=== PATIENT | female | born 1935 | race Caucasian/White ===

== ENCOUNTER 2018-02-07 12:49 | Observation (INO) | payer OTHER ==
[2018-02-07] MEDS ORDERED: DILTIAZEM 25 MG/5 ML VIAL IVP ONE (13:26)
[2018-02-07] MEDS ORDERED: DILTIAZEM 125 MG in D5W 125 ML IV ONE (13:26)
--- NOTE | 2018-02-07 13:30 | EDPHY ---
H & P Stated Complaint: afib from [facility]'s office Time Seen by Provider: 02/07/18 13:04 HPI/ROS: CHIEF COMPLAINT: Atrial fibrillation HISTORY OF PRESENT ILLNESS: 82-year-old female with paroxysmal atrial fibrillation presents with rapid heart rate. 8 week history of persistent atrial fibrillation, now on Eliquis and digoxin. Digoxin has not been controlling her heart rate and her heart rate has been persistently greater than 100. She feels fine at rest, but develops moderate shortness of breath and dizziness with standing and with any exertion. No chest pain or leg swelling. REVIEW OF SYSTEMS: complete 10 point ROS reviewed and is negative except for the noted elements in the HPI - Personal History Current Tetanus/Diphtheria Vaccine: Yes Current Tetanus Diphtheria and Acellular Pertussis (TDAP): Yes - Medical/Surgical History Hx Asthma: No Hx Chronic Respiratory Disease: No Hx Diabetes: No Hx Cardiac Disease: Yes Hx Renal Disease: Yes Hx Cirrhosis: No Hx Alcoholism: No Hx HIV/AIDS: No Hx Splenectomy or Spleen Trauma: No Other PMH: afib, CKD, hysterectomy, appy, - Social History Smoking Status: Never smoked Alcohol Use: Occasionally Drug Use: None - Physical Exam Exam: General Appearance: Alert, pleasant Eyes: Pupils equal and round, no conjunctival pallor ENT, Mouth: Mucous membranes moist Neck: Normal inspection Respiratory: Lungs are clear to auscultation Cardiovascular: Irregularly irregular tachycardia Gastrointestinal: Abdomen is soft and nontender Neurological: A&O, nonfocal, normal gait Skin: Warm and dry Extremities: Nontender, no pedal edema Psychiatric: Mood and affect normal Constitutional: Initial Vital Signs Temperature (C) 36.6 C 02/07/18 12:56 Heart Rate 114 H 02/07/18 12:56 Respiratory Rate 16 02/07/18 12:56 Blood Pressure 139/121 H 02/07/18 12:56 O2 Sat (%) 96 02/07/18 12:56 O2 Delivery Mode Room Air Allergies/Adverse Reactions: codeine Allergy (Verified 02/07/18 12:54) Home Medications: Medication Instructions Recorded Apixaban [Eliquis] 2.5 mg PO BID 02/07/18 C/E/Zn/Cu/OM3/DHA/EPA/LUT/ZEAX 1 each PO HS 02/07/18 [Preservision Areds 2 Softgel] Cholecalciferol Vit D3 [Vitamin D3 5,000 units PO DAILY 02/07/18 (*)] Cyanocobalamin [Vitamin B12 1,000 mcg IM Q30D 02/07/18 1000MCG/ML (*)] Digoxin [Lanoxin 0.125 mg] 125 mcg PO HS 02/07/18 Estradiol [Estrace] 1 mg PO HS 02/07/18 Irbesartan [Avapro 150 mg (*)] 300 mg PO DAILY 02/07/18 Zolpidem Tartrate [Ambien 5MG (*)] 5 mg PO HS PRN 02/07/18 Medical Decision Making - Diagnostics EKG Interpretation: EKG interpreted by me reveals atrial fibrillation, ventricular rate 112, low voltage, no ST or T segment changes. Interpretation: Abnormal EKG Imaging Results: Imaging Impressions Chest X-Ray 02/07/18 13:14 Impression: Chest negative for acute abnormality. Mild peribronchial thickening may reflect airways disease. Imaging: I viewed and interpreted images myself ED Course/Re-evaluation: This patient presents with atrial fibrillation with RVR. Stat EKG reveals no evidence of ischemia. Diltiazem 10 mg IV given followed by a diltiazem drip. Blood pressure remained stable throughout her emergency department stay. Heart rate gradually lowered to 100. Patient felt better after heart rate reduction. BNP elevated, c/w pulm edema secondary to Afib. Results d/w pt. Consulted Dr. Beach. Seen by Dr. Beach in the ED. Dr. Beach will admit the patient to the PCU. I spent a total of 35 minutes of critical care time in obtaining history, performing a physical exam, bedside monitoring of interventions, collecting and interpreting tests and discussion with consultants but not including time spent performing procedures. Organ at risk: Cardiac Differential Diagnosis: Includes though is not limited to pulmonary edema, pneumonia, acute coronary syndrome, hypotension, ventricular dysrhythmia. - Data Points Laboratory Results: Laboratory Results 02/07/18 13:10 02/07/18 13:10 02/07/18 02/07/18 02/07/18 13:13 13:10 13:10 WBC 8.69 10^3/uL 10^3/uL (3.80-9.50) RBC 4.64 10^6/uL 10^6/uL (4.18-5.33) Hgb 13.0 g/dL g/dL (12.6-16.3) Hct 41.0 % % (38.0-47.0) MCV 88.4 fL fL (81.5-99.8) MCH 28.0 pg pg (27.9-34.1) MCHC 31.7 g/dL L g/dL (32.4-36.7) RDW 13.8 % % (11.5-15.2) Plt Count 234 10^3/uL 10^3/uL (150-400) MPV 10.6 fL fL (8.7-11.7) Neut % (Auto) 68.1 % % (39.3-74.2) Lymph % (Auto) 19.1 % % (15.0-45.0) Eaton % (Auto) 9.0 % % (4.5-13.0) Eos % (Auto) 3.0 % % (0.6-7.6) Baso % (Auto) 0.6 % % (0.3-1.7) Nucleat RBC Rel Count 0.0 % % (0.0-0.2) Absolute Neuts (auto) 5.92 10^3/uL 10^3/uL (1.70-6.50) Absolute Lymphs (auto) 1.66 10^3/uL 10^3/uL (1.00-3.00) Absolute Monos (auto) 0.78 10^3/uL 10^3/uL (0.30-0.80) Absolute Eos (auto) 0.26 10^3/uL 10^3/uL (0.03-0.40) Absolute Basos (auto) 0.05 10^3/uL 10^3/uL (0.02-0.10) Absolute Nucleated RBC 0.00 10^3/uL 10^3/uL (0-0.01) Immature Gran % 0.2 % % (0.0-1.1) Immature Gran # 0.02 10^3/uL 10^3/uL (0.00-0.10) Sodium 141 mEq/L mEq/L (135-145) Potassium 4.2 mEq/L mEq/L (3.3-5.0) Chloride 104 mEq/L mEq/L (97-110) Carbon Dioxide 28 mEq/l mEq/l (22-31) Anion Gap 9 mEq/L mEq/L (6-14) BUN 22 mg/dL mg/dL (7-23) Creatinine 1.2 mg/dL H mg/dL (0.6-1.0) Estimated GFR 43 Glucose 84 mg/dL mg/dL (70-100) Calcium 9.2 mg/dL mg/dL (8.5-10.4) POC Troponin I 0.01 ng/mL ng/mL (0.00-0.08) NT-Pro-B Natriuret Pep 1450 pg/mL H pg/mL (0-450) Digoxin 0.4 ng/mL L ng/mL (0.8-2.0) Medications Given: Discontinued Medications Diltiazem HCl (Cardizem 25 Mg/5 Ml Vial) 10 mg IVP EDNOW ONE Stop: 02/07/18 13:27 Last Admin: 02/07/18 13:38 Dose: 10 mg Diltiazem HCl 125 mg/ Dextrose 125 mls @ 0 mls/hr IV EDNOW ONE; As Directed PRN Reason: Protocol Stop: 02/07/18 13:27 Last Admin: 02/07/18 14:04 Dose: 125 mls Point of Care Test Results: Chemistry 02/07/18 13:13 POC Troponin I 0.01 ng/mL ng/mL (0.00-0.08) Departure - Departure Disposition: [facility] Inpatient Acute Clinical Impression: Atrial fibrillation with rapid ventricular response Condition: Fair
[2018-02-07 13:52] LABS: PLATELET COUNT 234 10^3/uL (150-400)
[2018-02-07] MEDS ORDERED: ATROPINE SULFATE 1 MG/10 ML SYR IVP ONE (14:07)
[2018-02-07] MEDS ORDERED: ONDANSETRON 4 MG/2 ML VIAL IVP PRN (14:07)
[2018-02-07] MEDS ORDERED: NS 1,000 ML IV ONE (14:07)
[2018-02-07] MEDS ORDERED: ONDANSETRON DISINTEGRATING 4 MG TAB PO PRN (14:07)
--- NOTE | 2018-02-07 15:48 | ECHO ---
[email or web address] [address] [address] Main: [phone] Fax: Transthoracic Echocardiogram Name: HEAVENLY CLINE MR#: [id number] Study Date: 02/07/2018 Study Time: 02:06 PM Date of : 1935 Age: 82 year(s) Height: 157.5 cm (62 in.) Weight: 72.58 kg (160 lb.) BSA: 1.74 m2 Gender: Female Examination: Echo Indication: Atrial fibrillation with RVR Image Quality: Excellent Contrast: Requested by: Violeta Eubanks BP: 147 mmHg/99 mmHg Heart Rate: Rhythm: Indication: Atrial fibrillation with RVR Procedure Staff Student Activities Director: Sabine Shaver KIKO Reading Physician: Branden Beach MD Requesting Provider: Conclusions: Normal size left ventricle. No LV hypertrophy. Global hypercontractility of the left ventricle. EF is 59 %. No regional wall motion abnormality. Normal size right ventricle. The left atrium is mildly to moderately dilated. The right atrium is mildly dilated. Moderate mitral annular calcification. Moderate to severe mitral regurgitation. Mild aortic cusp calcification is noted. The aortic valve is tri-leaflet. There is no aortic valve regurgitation. The tricuspid valve is normal in appearance and function. Moderate tricuspid regurgitation is present. The pulmonary artery pressure is mildly increased. RVSP is 45-50mmHG.. The pulmonic valve is normal in appearance and function. Trivial pulmonic valve regurgitation. The aorta is normal. No pericardial effusion. Incidental finding - liver cyst measuring 13.4 cm x 11.5 cm.. The patient has atrial fibrillation with a rapid ventricular response. Moderately severe mitral regurgitation moderate MR with pulmonary hypertension. Measurements: Chambers Valvular Assessment AV/MV Valvular Assessment TV/PV Patient: HEAVENLY CLINE Study Date: 02/07/2018 Page 1 of 3 02:06 PM Normal Normal Normal Name Value Range Name Value Range Name Value Range Ao Frances (MM): 3.5 cm (2.2 cm-3.7 AV Vmax: 1.31 m/s (1 m/s-1.7 TR Vmax: 3.15 mm/s ( - ) cm) m/s) TR PGmax: 40 mmHg ( - ) IVSd (2D): 0.8 cm (0.6 cm-1.1 AV maxP mmHg ( - ) syst. PAP: 50 mmHg ( - ) cm) AV meanP mmHg ( - ) LVDd (2D): 4.1 cm (3.9 cm-5.3 LVOT Vmax: 0.65 m/s (0.7 m/s-1.1 cm) m/s) LVDs (2D): 2.3 cm (2.1 cm-4 ALINE (Vmax): 1.4 cm2 ( - ) cm) ALINE (VTI): 1.6 cm ( - ) LVPWd (2D): 0.7 cm ( - ) MV maxP mmHg ( - ) LVOTd 1.9 cm 1.9 cm mm MV meanP mmHg ( - ) LVEF (MOD4): 59 % (>=55 %) MVA (Vmax): 1.2 m/s ( - ) Continued Measurements: Chambers Valvular Assessment AV/MV Valvular Assessment TV/PV Name Value Name Value Name Value LADs: 4.0 cm MV Annulus: 3.0 cm CVP (est.): 10 mmHg LADs Lon.4 cm MV VTI: 29.80 cm LA Area: 21.8 cm2 MR Vena Contracta: 0.3 cm LA Volume: 62 ml MR ERO: 0.220 cm2 LA Volume Index: 35.6 ml/m2 MR PISA radius: 7 mm MR Reg. Volume: 36 ml MR Reg. Fraction: 17 % Additional Vessels Name Value Ao Ascendin.6 cm Findings: Left Ventricle: Normal size left ventricle. No LV hypertrophy. Global hypercontractility of the left ventricle. EF is 59 %. No regional wall motion abnormality. Right Ventricle: Normal size right ventricle. Left Atrium: The left atrium is mildly to moderately dilated. Right Atrium: The right atrium is mildly dilated. Mitral Valve: Moderate mitral annular calcification. Moderate to severe mitral regurgitation. Aortic Valve: Mild aortic cusp calcification is noted. The aortic valve is tri-leaflet. There is no aortic valve regurgitation. Tricuspid Valve: The tricuspid valve is normal in appearance and function. Moderate tricuspid regurgitation is present. The pulmonary artery pressure is mildly increased. RVSP is 45-50mmHG.. Pulmonic Valve: The pulmonic valve is normal in appearance and function. Trivial pulmonic valve regurgitation. Aorta: The aorta is normal. Pericardium: No pericardial effusion. Exam Comments: Incidental finding - liver cyst measuring 13.4 cm x 11.5 cm.. Patient: HEAVENLY CLINE Study Date: 02/07/2018 Page 2 of 3 02:06 PM (No Signature Object) Patient: HEAVENLY CLINE Study Date: 02/07/2018 Page 3 of 3 02:06 PM [id number]
--- NOTE | 2018-02-07 17:11 | GHP ---
DATE OF ADMISSION: 02/07/2018 HISTORY OF PRESENT ILLNESS: The patient is an 82-year-old patient with a history of coronary artery disease on the basis of a positive calcium score. She also has a history of renal insufficiency, and a remote history of atrial tachycardia as well as possible atrial flutter. Over the past 3 months h er cardiac situation has become more difficult to manage. She initially was treated in [place] for at rial flutter with the use of relatively high-dose flecainide which resulted in shortness of breath an d inability to continue the medication. Multaq was also unsuccessful in reducing her symptoms. The patient has subsequently developed persistent atrial fibrillation with rapid ventricular response wit h pulse rates between 115 and 150. She has felt wiped out, fatigued, and very tired. She is also br eathless with minimal activity. She has not had chest discomfort, pressure, tightness, or other clin ical symptoms of concern. CURRENT MEDICATIONS: Include digoxin 0.125 mg daily, Estrace 1 mg p.o. q.h.s., Eliquis 2.5 p.o. b.i. d. dose adjusted for her renal insufficiency, Avapro 300 mg p.o. daily, vitamin D3 5000 International Units daily, Ambien 5 mg as needed for sleep, and vitamin B12 1000 mcg intramuscularly q.30 days. ALLERGIES: Again, she is known to be allergic to codeine. PAST MEDICAL AND SURGICAL HISTORY: Otherwise notable for a large hepatic cyst which has been tracked by imaging for quite some time and noted to be stable. REVIEW OF SYSTEMS: Pertinent for an unintentional 15-pound weight loss over the past 3-4 months in s pite of her inability to perform significant exercise. She does not abuse alcohol or illicit drugs. PHYSICAL EXAMINATION: GENERAL: She appears somewhat anxious. VITAL SIGNS: Her blood pressure is 1 39/121, with a mean pressure of 127. Heart rate is between 110 and 120, respiratory rate 16, oxygen saturation 96% on room air, at a temperature of 36.5. NECK: Reveals no JVD or carotid bruit. HEART : Reveals normal S1 and S2 with irregularly irregular rhythm, as well as a murmur consistent with mi tral regurgitation. LUNGS: Clear to auscultation bilaterally without wheezes, rales, or rhonchi. A BDOMEN: Reveals positive bowel sounds. It is nondistended and nontender. I do not appreciate a mas s. EXTREMITIES: Warm, dry, and well perfused without significant peripheral edema. She has intact radial and dorsalis pedis pulses with a slight pulse deficit compared to her heart rhythm. DATA REVIEWED: Her laboratory studies reveal a white count of 8.69, H and H are 13.0 and 41.0, plate let count 234 with a normal differential. Sodium 141, potassium 4.2, BUN and creatinine are 22 and 1 .2, with an estimated GFR of 43, glucose 84, calcium 9.2. N-terminal proBNP of 1450. Dig level was measured at 0.4 ng/mL, which is below the therapeutic range. Her EKG reveals atrial fibrillation wit h rapid ventricular response and a low-voltage EKG throughout. Her echocardiogram reveals moderately severe mitral regurgitation with left atrial enlargement. She does not have left ventricular hypert rophy. She also has [id number] tricuspid regurgitation with an estimated pulmonary artery pr essure of 45-50 with preserved ejection fraction, and no segmental wall motion abnormalities. Chest x-ray reveals no acute cardiopulmonary process. IMPRESSION AND PLAN: The patient has atrial fibrillation with rapid ventricular response, has been t reated in the emergency department with a bolus of Cardizem followed by a drip. She has not had an a ttempt at cardioversion, and was in normal rhythm throughout much of the early summer. I do think it would be prudent to consider an attempt at TANGELA-guided cardioversion which we will plan for tomorrow morning. She may be a candidate for a different antiarrhythmic drug such as Tikosyn to try to mainta in sinus rhythm. I suspect some degree of her mitral regurgitation is related to her atrial fibrilla tion and rapid response. She does not appear to have true valvular pathology that would explain the severity of her mitral regurgitation such as prolapse or myxomatous leaflets. I have explained our p lesly and this course of action. The patient understands and is willing to proceed as we have planned. Copy requested to: Primary Care Physician Ky Gallagher /[id number]/MODL
[2018-02-07] MEDS: APIXABAN 2.5 MG TAB PO SCH (19:28)
[2018-02-07] MEDS: PRESERVISION AREDS2 FORMULA EYE VIT 1 EACH PO SCH (19:28)
[2018-02-07] MEDS: ESTRADIOL 1 MG TAB PO SCH (19:28)
[2018-02-07] MEDS ORDERED: DIGOXIN 125 MCG TAB PO SCH (21:00)
[2018-02-07] MEDS: ACETAMINOPHEN 325 MG TAB PO PRN (21:39)
[2018-02-07] MEDS: ZOLPIDEM TARTRATE 5 MG TAB PO PRN (21:40)
[2018-02-08] MEDS ORDERED: ETOMIDATE 40 MG/20 ML INJ IV ONE (07:45)
[2018-02-08] MEDS ORDERED: fentaNYL 100 MCG/2 ML INJ ONE (08:49)
[2018-02-08] MEDS ORDERED: MIDAZOLAM 2 MG/2 ML VIAL ONE (08:49)
[2018-02-08] MEDS ORDERED: ATROPINE SULFATE 1 MG/10 ML SYR ONE (09:02)
[2018-02-08] MEDS ORDERED: DILTIAZEM 125 MG in D5W 125 ML IV ONE (10:00)
--- NOTE | 2018-02-08 10:06 | PDANEPAE ---
ANE Past Medical History - Cardiovascular History Hx Hypertension: No Hx Arrhythmias: Yes - Pulmonary History Hx COPD: No Hx Oxygen in Use at Home: No Hx Sleep Apnea: No - Endocrine History Hx Diabetes: No - Renal History Hx Renal Disorders: Yes Renal History Comment: Chronic Renal insufficiency - Liver History Hx Hepatic Disorders: No - Neurological & Psychiatric Hx Hx Neurological and Psychiatric Disorders: No - GI History Hx Gastrointestinal Disorders: No - Chronic Pain History Chronic Pain: No ANE Review of Systems Review of Systems: - Exercise capacity Exercise capacity: <4 METS ANE Patient History - Allergies Allergies/Adverse Reactions: codeine Allergy (Verified 02/07/18 12:54) - Home Medications Home Medications: Apixaban [Eliquis] 2.5 mg PO BID 02/07/18 [Last Taken 02/07/18 08:00] C/E/Zn/Cu/OM3/DHA/EPA/LUT/ZEAX [Preservision Areds 2 Softgel] 1 each PO HS 02/07 [Last Taken 02/06/18] Cholecalciferol Vit D3 [Vitamin D3 (*)] 5,000 units PO DAILY 02/07/18 [Last Taken 02/07/18] Cyanocobalamin [Vitamin B12 1000MCG/ML (*)] 1,000 mcg IM Q30D 02/07/18 [Last Taken 01/17/18] Digoxin [Lanoxin 0.125 mg] 125 mcg PO HS 02/07/18 [Last Taken 02/06/18] Estradiol [Estrace] 1 mg PO HS 02/07/18 [Last Taken 02/06/18] Irbesartan [Avapro 150 mg (*)] 300 mg PO DAILY 02/07/18 [Last Taken 02/07/18] Zolpidem Tartrate [Ambien 5MG (*)] 5 mg PO HS PRN 02/07/18 [Last Taken 02/06/18] - Smoking Hx Smoking Status: Never smoked - Alcohol Use Alcohol Use: Occasionally ANE Labs/Vital Signs - Labs Result Diagrams: 02/07/18 13:10 02/07/18 13:10 - Vital Signs Blood Pressure: 114/69 Heart Rate: 77 Respiratory Rate: 20 O2 Sat (%): 94 Height: 157.48 cm Weight: 74.616 kg ANE Physical Exam - Airway Neck exam: FROM Mallampati Score: Class 2 Mouth exam: normal dental/mouth exam - Pulmonary Pulmonary: no respiratory distress, no rales or rhonchi, clear to auscultation - Cardiovascular Cardiovascular: irregularly irregular - ASA Status ASA Status: III
[2018-02-08] MEDS ORDERED: LIDOCAINE 1% 5 ML SDV ONE (10:09)
[2018-02-08] MEDS ORDERED: PROPOFOL/EMULSION 500 MG/50 ML BOTTLE IV ONE (10:09)
--- NOTE | 2018-02-08 13:23 | CPEKG ---
Test Reason : OPEN Blood Pressure : / mmHG Vent. Rate : 053 BPM Atrial Rate : 055 BPM P-R Int : 196 ms QRS Dur : 083 ms QT Int : 447 ms P-R-T Axes : 019 008 032 degrees QTc Int : 420 ms Sinus rhythm Atrial premature complex Low voltage, extremity leads Confirmed by Manoj Skinner ([id number]) on 02/08/2018 1:23:18 PM Referred By: Confirmed By:Manoj Skinner
[2018-02-08] MEDS: APIXABAN 2.5 MG TAB PO SCH ×2 (15:18→20:47)
--- NOTE | 2018-02-08 15:21 | ASMTCMCOM ---
CM Note CM Note Notes: Chart reviewed by ANDREA. Pt was admitted last night for Afib and RVR and was to have TANGELA cardioversion this am. Pt lives with and their address is listed in [place]. No therapies have been order. Pt will likely discharge independently. D/C Plan: TBD Date Signed: 02/08/2018 03:21 PM Electronically Signed By:Alissa Justice
--- NOTE | 2018-02-08 16:08 | POSTANESTH ---
Post Anesthetic Evaluation Cardiovascular Status: Normal, Stable Respiratory Status: Normal, Stable Level of Consciousness/Mental Status: Can Participate in Eval Pain Control: Adequate, Prn Tx Ordered Nausea/Vomiting Control: Adequate, Prn Tx Ordered Complications Possibly Related to Anesthesia: None Noted
[2018-02-08] MEDS: IRBESARTAN 150 MG TAB PO SCH (16:49)
[2018-02-08] MEDS: ACETAMINOPHEN 325 MG TAB PO PRN ×2 (16:50→20:50)
[2018-02-08] MEDS ORDERED: oxyCODONE IR 5 MG TAB PO PRN (17:21)
[2018-02-08] MEDS ORDERED: AMIODARONE HCL 100 ML IV ONE (17:22)
[2018-02-08] MEDS ORDERED: AMIODARONE HCL 200 ML IV ONE (17:31)
--- NOTE | 2018-02-08 17:48 | ECHO ---
[email or web address] [address] [address] Main: [phone] Fax: Transesophageal Echocardiography Name: HEAVENLY CLINE MR#: [id number] Study Date: 02/08/2018 Study Time: 11:50 AM Date of : 1935 Age: 82 year(s) Height: ( ) Weight: ( ) BSA: Gender: Female Examination: TANGELA Indication: Pre cardioversion Image Quality: Contrast: Requested by: Branden Beach Heart Rate: Rhythm: BP: / Procedure Staff Security Officer Supervisor: Juni Tony RDCS Reading Physician: Branden Beach MD Requesting Provider: TANGELA Exam Details Measurements: Chambers Valvular Assessment AV/MV Valvular Assessment TV/PV Normal Normal Normal Name Value Range Name Value Range Name Value Range TR Vmax: 2.68 mm/s ( - ) TR PGmax: 29 mmHg ( - ) syst. PAP: 34 mmHg ( - ) Additional Measurements: Valvular Assessment TV/PV Name Value CVP (est.): 5 mmHg Findings: Left Ventricle: Normal size left ventricle. Normal global systolic LV function. Left Atrial Appendage: Good color flow doppler in the left atrial appendage. No thrombus in left appendage. Right Atrium: The right atrium is normal in size. Mitral Valve: Patient: HEAVENLY CLINE Study Date: 02/08/2018 Page 1 of 2 11:50 AM Moderate to severe mitral regurgitation. Aortic Valve: The aortic valve is tri-leaflet. Trivial aortic valve regurgitation. Tricuspid Valve: The tricuspid valve is normal in appearance and function. Moderate tricuspid regurgitation is present. Pulmonic Valve: The pulmonic valve is normal in appearance. Trivial pulmonic valve regurgitation. Aorta: The aorta is normal. Pericardium: No pericardial effusion. Exam Comments: Proceeded with successful elective DC cardioversion.. l1n (No Signature Object) Patient: HEAVENLY CLINE Study Date: 02/08/2018 Page 2 of 2 11:50 AM [id number]
[2018-02-08] MEDS: PRESERVISION AREDS2 FORMULA EYE VIT 1 EACH PO SCH (20:47)
[2018-02-08] MEDS: ZOLPIDEM TARTRATE 5 MG TAB PO PRN (20:47)
[2018-02-08] MEDS: ESTRADIOL 1 MG TAB PO SCH (20:47)
[2018-02-09] MEDS ORDERED: AMIODARONE HCL 540 MG in D5W 300 ML IV ONE
[2018-02-09] MEDS: IRBESARTAN 150 MG TAB PO SCH (08:55)
[2018-02-09] MEDS: APIXABAN 2.5 MG TAB PO SCH ×2 (08:55→21:23)
--- NOTE | 2018-02-09 11:00 | CPEKG ---
Test Reason : OPEN Blood Pressure : / mmHG Vent. Rate : 070 BPM Atrial Rate : 070 BPM P-R Int : 193 ms QRS Dur : 086 ms QT Int : 416 ms P-R-T Axes : 014 -02 023 degrees QTc Int : 449 ms Sinus rhythm Low voltage, extremity and precordial leads Confirmed by Manoj Skinner ([id number]) on 02/09/2018 10:59:38 AM Referred By: Confirmed By:Manoj Skinner
[2018-02-09] MEDS: ACETAMINOPHEN 325 MG TAB PO PRN ×2 (12:58→21:23)
--- NOTE | 2018-02-09 18:50 | PDCARPN ---
Cardiology Progress Note Assessment/Plan: Assessment: Persistent paroxysmal atrial fibrillation s/p amiodarone. The patient had a TANGELA/DCCV yesterday morning, which was successful. The patient is currently in normal sinus rhythm and is asymptomatic. Plan: amiodarone 400mg p.o BID 02/09/18 17:50 Reviewed/Discussed With: family, multidisciplinary team Time Spent with Patient: greater than 35 minutes Time Spent with Patient: Greater than 35 minutes spent on this patients care, greater than 50% of time spent counseling, educating, and coordinating care regarding the above mentioned plan. Objective: Vital Signs (8 Hrs) Temp Pulse Resp BP Pulse Ox 02/09/18 16:18 36.6 C 74 14 143/84 H 91 L 02/09/18 14:59 36.6 C 77 20 136/67 H 91 L 02/09/18 12:00 36.6 C 70 22 H 144/82 H 93 Intake/Output (24 Hrs) 02/08/18 02/09/18 02/10/18 05:59 05:59 05:59 Intake Total 520 939 Output Total 1400 1000 450 Balance -880 -61 -450 Intake: Oral (ml) 520 840 IV Infused (ml) 99 Amiodarone HCl 540 mg In 99 D5w 300 ml @ 16.667 mls/ hr IV ONCE ONE Rx#: [id number] Output: Urine (ml) 1400 1000 450 Toilet 1400 1000 450 Other: Weight 74.616 kg 74.616 kg Number of Voids Toilet 1 1 Number of Stools Toilet 1 Result Diagrams: 02/07/18 13:10 02/07/18 13:10 EKG: sinus rhythm Telemetry: sinus occasional PVC's - Physical Exam Constitutional: WDWN, no apparent distress Eyes: PERRL, EOMI, anicteric sclera Ears, Nose, Mouth, Throat: moist mucous membranes Cardiovascular: regular rate and rhythm, systolic murmur Respiratory: clear to auscultate bilat Gastrointestinal: normoactive bowel sounds Psychiatric: cooperative, interactive - . Pending Discharge Within 24 Hours: Yes ICD10 Worksheet Patient Problems: Problems Problem Status Onset Atrial fibrillation with rapid ventricular response Acute
[2018-02-09] MEDS: ZOLPIDEM TARTRATE 5 MG TAB PO PRN (21:23)
[2018-02-09] MEDS: AMIODARONE HCL 200 MG TAB PO SCH (21:23)
[2018-02-09] MEDS: ESTRADIOL 1 MG TAB PO SCH (21:24)
[2018-02-09] MEDS: PRESERVISION AREDS2 FORMULA EYE VIT 1 EACH PO SCH (21:24)
[2018-02-10 09:00] VITALS: BP 128/74
[2018-02-10] MEDS: IRBESARTAN 150 MG TAB PO SCH (09:00)
[2018-02-10] MEDS: APIXABAN 2.5 MG TAB PO SCH (09:00)
[2018-02-10] MEDS: AMIODARONE HCL 200 MG TAB PO SCH (09:00)
--- NOTE | 2018-02-10 10:29 | ASDISCHSUM ---
Discharge Information Plan Status:Home with No Needs Medically Cleared to Leave:02/09/2018 Discharge Date:02/09/2018 CM D/C Disposition:Home, Routine, Self-Care ADT D/C Disposition:Home, Routine, Self-Care Projected Discharge Date:02/09/2018 Transportation at D/C: Discharge Delay Reason: Follow-Up Date:02/09/2018 Discharge Slot: Final Diagnosis: Placement Information Patient Contact Information Contact Name:SHAY Relationship: Address:[address] City:[place] Phone: [facility]/Zip Code:[place] [address] Email: Financial Information Financial Class:Medicare Advantage Plans Primary Plan Desc:CHERYL CAM MEDICARE Primary Plan Number:[id number] Secondary Plan Desc: Secondary Plan Number: Assessment Information LACE LACE Length of stay for Answers: 2 days current admission Acuity / Level of Answers: No Care: Did the patient have an inpatient admission? Comorbidities - select Answers: Congestive heart failure all that apply Mild liver or renal disease Other Notes: AFib # of Emergency department Answers: 1-2 visits in the last 6 months Score: 8 Date Signed: 02/10/2018 10:27 AM Electronically Signed By:Annabelle Marina RN [facility] ANDREA Progress Note CM Note ANDREA Note Notes: Chart reviewed by ANDREA. Pt was admitted last night for Afib and RVR and was to have TANGELA cardioversion this am. Pt lives with and their address is listed in [place]. No therapies have been order. Pt will likely discharge independently. D/C Plan: TBD Date Signed: 02/08/2018 03:21 PM Electronically Signed By:Alissa Justice Case Management Discharge Plan Note Case Management Discharge Discharge Order Complete? Answers: Yes Patient to Obtain Answers: via Family Medications Discharge Comments Notes: 02/10/2018 Case Management Note Pt d/c independently with no identified needs from case management. Date Signed: 02/10/2018 10:29 AM Electronically Signed By:Annabelle Marina RN Intervention Information
--- NOTE | 2018-02-10 10:37 | GDS ---
ADMISSION DIAGNOSES: 1. Paroxysmal and now persistent atrial fibrillation. 2. Hypertension. 3. Dyslipidemia. DISCHARGE DIAGNOSES: 1. Atrial fibrillation, status post cardioversion, now in sinus rhythm. 2. Hypertension, well controlled. 3. Dyslipidemia. HISTORY OF PRESENT ILLNESS/HOSPITAL COURSE: For detailed history and physical, please see the recent ly dictated H and P. briefly, the patient is an 82-year-old patient with a prior history of atrial t achycardia and atrial flutter who presented to the emergency department with complaints of shortness of breath. She drove in to visit friends and experienced shortness of breath, as well as palpitation s. She has been having problems with persistent atrial fibrillation for several weeks before driving down from [place], [place]. The patient was noted to be in atrial fibrillation with rapid ventricular response. She was kept n.p .o. overnight, and on the following morning, underwent successful TANGELA guided cardioversion. She has remained in sinus rhythm since that time with occasional PVCs. On the morning of her discharge from the hospital, the patient is medically stable and ready for discharge to home. Her blood pressure is well controlled at 128/74. Her EKG is unchanged without a prolonged QT interval. DISCHARGE MEDICATIONS: To include amiodarone 400 mg p.o. b.i.d. to complete 5 days, which will end o n Wednesday, after that she is to take only 1 tablet 200 mg daily of amiodarone. Her medications also i nclude Ambien 5 mg as needed for insomnia, vitamin D3 5000 international units daily, irbesartan 300 mg p.o. daily, estradiol 1 mg p.o. q.h.s., apixaban (Eliquis) 2.5 mg p.o. b.i.d., and vitamin B12 int ramuscularly every 30 days. Her digoxin has been discontinued. The patient understands the long-term risks of amiodarone, include damage to her eyesight, liver, thy roid, and the potential for pulmonary fibrosis, which are usually dose related. Certainly, it is imp ortant for us to maintain sinus rhythm as she has clinical symptoms of heart failure when she is in a trial fibrillation with rapid ventricular response. She should have a followup echo in 6 months to e nsure that her mitral regurgitation is not getting worse. DISCHARGE INSTRUCTIONS/FOLLOWUP: Her activities will be restricted by post-cardioversion precautions . She is to avoid strenuous activity, excess caffeine, or alcohol for the next 3 weeks. She is to f peterlow up with an EKG in 1 to 2 weeks once she has return to [place] with it. She knows to return prom ptly to the emergency department for sensation of palpitations, skipped heart beats, or other clinica l symptoms of concern. The patient will require a screening ophthalmology visit in the next few week s. LABORATORY DATA: Her discharge chemistries reveal a creatinine of 1.3, estimated GFR of 39. N-termi nal proBNP is improved from 1450 to 1210. TSH was 1.65 and the thyroxine T4 level was 11.2, which is high, slightly above the upper limits of normal at 11. Her bilirubin is 0.3, AST is 14, ALT is 22, with alkaline phosphatase is 75, which are her pre-amiodarone liver enzymes and thyroid function test s. /[id number]/MODL
--- NOTE | 2018-02-10 16:33 | CPEKG ---
Test Reason : OPEN Blood Pressure : / mmHG Vent. Rate : 080 BPM Atrial Rate : 080 BPM P-R Int : 193 ms QRS Dur : 080 ms QT Int : 404 ms P-R-T Axes : 044 014 039 degrees QTc Int : 466 ms Sinus rhythm Low voltage, extremity and precordial leads Confirmed by Manoj Skinner ([id number]) on 02/10/2018 4:32:58 PM Referred By: Confirmed By:Manoj Skinner
--- NOTE | 2018-02-11 17:37 | CPEKG ---
Test Reason : OPEN Blood Pressure : / mmHG Vent. Rate : 112 BPM Atrial Rate : 162 BPM P-R Int : 149 ms QRS Dur : 080 ms QT Int : 343 ms P-R-T Axes : 000 008 159 degrees QTc Int : 469 ms Atrial fibrillation Low voltage, extremity leads Nonspecific T abnormalities, lateral leads Confirmed by Eligio Nunez ([id number]) on 02/11/2018 5:36:27 PM Referred By: Confirmed By:Eligio Nunez
== END 2018-02-10 11:50 | disposition home or self-care (01) ==
LOC: F2W 14:45
PROVIDERS: ADMIT Internal Medicine; ATTEND Internal Medicine Cardiovascular Disease
DX: I48.0 Paroxysmal atrial fibrillation (principal); I48.2 Chronic atrial fibrillation; I12.9 Hypertensive chronic kidney disease with stage 1 through stage 4 chronic kidney disease, or unspecified chronic kidney disease; E78.5 Hyperlipidemia, unspecified; N18.9 Chronic kidney disease, unspecified; I25.10 Atherosclerotic heart disease of native coronary artery without angina pectoris
CPT/HCPCS: 71046; 92960; 93005; 93306; 93312; 96365; 96366; 96367; 96375; 99291; G0378; J0282; J2704; 84484-PO; J0461; J2250; J3010

== ENCOUNTER → 2018-04-11 | Day surgery (SDC) | payer OTHER ==
--- NOTE | 2018-04-11 17:21 | ECHO ---
[email or web address] [address] [address] Main: [phone] Fax: Transthoracic Echocardiogram Name: HEAVENLY CLINE MR#: [id number] Study Date: 04/11/2018 Study Time: 01:09 PM Date of : 1935 Age: 82 year(s) Height: 157.5 cm (62 in.) Weight: 72.58 kg (160 lb.) BSA: 1.74 m2 Gender: Female Examination: Echo Indication: Re-evaluate the mitral regurgitation, now in NSR Image Quality: Adequate Contrast: Requested by: Branden Beach BP: / Heart Rate: Rhythm: Indication: Re-evaluate the mitral regurgitation, now in NSR Procedure 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 Mild concentric LV hypertrophy. Normal global systolic LV function. EF is 69 %. No regional wall motion abnormality. Grade III diastolic dysfunction. Normal size right ventricle. Normal RV function. Left atrium measures mildly dilated; visually appears mild to moderately dilated. The right atrium is mildly to moderately dilated. The mitral leaflets are thickened. The posterior leaflet domes in systole (hockey stick appearance). There is significant mitral annular calcification. There is severe mitral regurgitation. Pulmonary vein reversal noted. Mitral inflow E wave over 1.2 m/s. The mean gradient across the MV is 3mmHg. No significant mitral stenosis. Papillary muscle dysfunction should be considered. The aortic valve is tri-leaflet. Mild aortic cusp calcification is noted. There is no significant aortic valve regurgitation. No aortic valve stenosis is present. The tricuspid valve appears normal. Severe tricuspid regurgitation is present. Pulmonary valve not well visualized. Mild pulmonic valve regurgitation is noted. Normal size aortic root measuring 2.8 cm. Normal size ascending aorta measuring 3.4 cm. The IVC is dilated. No pericardial effusion. The patient has severe mitral valve and tricuspid valve regurgitation in spite of normal sinus rhythm and needs heart cath to check trans pulmonic gradient as well as to rule out coronary artery disease. Patient: HEAVENLY CLINE Study Date: 04/11/2018 Page 1 of 3 01:09 PM Measurements: Chambers Valvular Assessment AV/MV Valvular Assessment TV/PV Normal Normal Normal Name Value Range Name Value Range Name Value Range Ao Frances (MM): 2.8 cm (2.2 cm-3.7 AV Vmax: 1.19 m/s (1 m/s-1.7 TR Vmax: 3.95 mm/s ( - ) cm) m/s) TR PGmax: 62 mmHg ( - ) IVSd (2D): 1.0 cm (0.6 cm-1.1 AV maxP mmHg ( - ) syst. PAP: 72 mmHg ( - ) cm) MV E Vmax: 1.66 m/s ( - ) PV Vmax: 0.62 m/s (0.6 m/s-0.9 LVDd (2D): 4.3 cm (3.9 cm-5.3 MV A Vmax: 0.59 m/s ( - ) m/s) cm) MV E/A: 2.81 ( - ) PV PGmax: 2 mmHg ( - ) LVDs (2D): 2.8 cm (2.1 cm-4 MV meanP mmHg ( - ) cm) MV PHT: 0.072 s ( - ) LVPWd (2D): 1.0 cm ( - ) MVA (Vmax): 2.8 m/s ( - ) LVOTd 2.0 cm 2.0 cm mm MVA (PHT): 3.1 s ( - ) LVEF (BP): 69 % (>=55 %) RVDd(2D): 3.2 cm (1.9 cm-3.8 cmmm) Continued Measurements: Chambers Valvular Assessment AV/MV Valvular Assessment TV/PV Name Value Name Value Name Value LADs: 3.7 cm MV Annulus: 3.3 cm CVP (est.): 10 mmHg LADs Lon.2 cm MV DecTime: 144 m/s LA Area: 23.0 cm2 MV E' Septal: 0.04 m/s LA Volume: 69 ml MV E/E' Septal: 37.00 LA Volume Index: 39.7 ml/m2 MV E/E' Lateral: 28.70 TAPSE: 2.3 cm MV VTI: 18.80 cm RA Area: 17.7 cm2 MR Vena Contracta: 0.6 cm MR ERO: 0.220 cm2 MR PISA radius: 8 mm MR Reg. Volume: 48 ml MR Reg. Fraction: 30 % Additional Vessels Name Value Ao Ascendin.4 cm Findings: Left Ventricle: Normal size left ventricle. Mild concentric LV hypertrophy. Normal global systolic LV function. EF is 69 %. No regional wall motion abnormality. Grade III diastolic dysfunction. Right Ventricle: Normal size right ventricle. Normal RV function. Left Atrium: Left atrium measures mildly dilated; visually appears mild to moderately dilated. Right Atrium: The right atrium is mildly to moderately dilated. Mitral Valve: The mitral leaflets are thickened. The posterior leaflet domes in systole (hockey stick appearance). There is significant mitral annular calcification. There is severe mitral regurgitation. Pulmonary vein reversal noted. Mitral inflow E wave over 1.2 m/s. The mean gradient across the MV is 3mmHg. No significant mitral stenosis. Papillary muscle dysfunction should be considered. Aortic Valve: The aortic valve is tri-leaflet. Mild aortic cusp calcification is noted. There is no significant aortic valve regurgitation. No aortic valve stenosis is present. Tricuspid Valve: The tricuspid valve appears normal. Severe tricuspid regurgitation is present. Moderate to severe tricuspid valve regurgitation. Right ventricular systolic pressure measures 72mmHg. The pulmonary Patient: HEAVENLY CLINE Study Date: 04/11/2018 Page 2 of 3 01:09 PM artery pressure is severely increased. Pulmonic Valve: Pulmonary valve not well visualized. Mild pulmonic valve regurgitation is noted. Aorta: Normal size aortic root measuring 2.8 cm. Normal size ascending aorta measuring 3.4 cm. IVC: The IVC is dilated. Pericardium: No pericardial effusion. (No Signature Object) Patient: HEAVENLY CLINE Study Date: 04/11/2018 Page 3 of 3 01:09 PM [id number]
== END | disposition home or self-care (01) ==
LOC: FCATH 12:59
PROVIDERS: ATTEND Internal Medicine Cardiovascular Disease
PROC: B246ZZ4 Ultrasonography of Right and Left Heart, Transesophageal (ICD-10-PCS; principal; 2018-04-11)
DX: I34.0 Nonrheumatic mitral (valve) insufficiency (principal); I48.91 Unspecified atrial fibrillation

== ENCOUNTER 2018-04-14 09:17 | Day surgery (SDC) | payer OTHER ==
[2018-04-14] MEDS ORDERED: ASPIRIN EC 325 MG TAB PO ONE ×2 (09:21→09:34)
[2018-04-14] MEDS ORDERED: DIAZEPAM 5 MG TAB PO ONE (09:21)
[2018-04-14] MEDS ORDERED: diphenhydrAMINE 25 MG CAP PO ONE ×2 (09:21→09:34)
[2018-04-14] MEDS ORDERED: FAMOTIDINE 20 MG TAB PO ONE (09:21)
[2018-04-14] MEDS ORDERED: NS 1,000 ML IV ONE (09:21)
[2018-04-14] MEDS ORDERED: FAMOTIDINE 20 MG TAB ONE (09:34)
[2018-04-14] MEDS ORDERED: DIAZEPAM 5 MG TAB ONE (09:35)
[2018-04-14 09:51] LABS: PLATELET COUNT 236 10^3/uL (150-400)
[2018-04-14 09:59] LABS: INR 1.18 (0.83-1.16); PROTIME(PATIENT) 15.2 SEC (12.0-15.0)
[2018-04-14] MEDS ORDERED: VERAPAMIL 5 MG/2 ML VIAL ONE (10:20)
[2018-04-14] MEDS ORDERED: LIDOCAINE 1% 300 MG/30 ML SDV ONE (10:20)
[2018-04-14] MEDS ORDERED: MIDAZOLAM 2 MG/2 ML VIAL ONE (10:20)
[2018-04-14] MEDS ORDERED: fentaNYL 100 MCG/2 ML INJ ONE (10:20)
[2018-04-14] MEDS ORDERED: HEPARIN 10,000 UNIT/10 ML MDV (1,000 UNIT/ML) ONE (10:21)
[2018-04-14] MEDS ORDERED: IOPAMIDOL (ISOVUE-370) 150 ML BTL IV ONE (10:21)
--- NOTE | 2018-04-14 10:22 | PDPROPOC ---
Sedation Plan of Care Sedation Plan of Care: vital signs stable, mental status noted, patient educated of risks, benefits, alternatives, patient can tolerate sedation ASA Classification: ASA 3 Planned drugs: fentanyl, midazolam Mallampati Score: Class 2 Mallampati Reference Image: Patient passed 3-3-2 rule?: Yes
--- NOTE | 2018-04-14 10:28 | PDGENHP ---
History and Physical - Chief Complaint here for pre operative heart cath - History of Present Illness Janina Degroot is an 82 year old lady with paroxysmal atrial fibrillaiton, severe mitral regurgitation and severe tricuspid regurgitation that has persisted in spite of normal rhythm. She feels miserable when in atrial fibrillation and hates the way that beta blockers make her feel. She is slated for open heart surgery early next week with Dr. Kolb. The surgery will be a mitral tanvir replacement(likely) with triuspid valve repair and Lizama Maze IV as well as left atrial appendage ligation. She has a calcified and tortuous aorta so caution will need to be used if the aorta is to be cross clamped. Today we will be checking to see if she has underlying coronary disease and measuring her right heart pressures as well. History Information - Allergies/Home Medication List Allergies/Adverse Reactions: codeine Allergy (Verified 04/13/18 10:10) Vomiting Home Medications: C/E/Zn/Cu/OM3/DHA/EPA/LUT/ZEAX [Preservision Areds 2 Softgel] 1 each PO HS 02/07 [Last Taken 04/13/18 21:00] Cholecalciferol Vit D3 [Vitamin D3 (*)] 5,000 units PO DAILY 02/07/18 [Last Taken 04/13/18 21:00] Irbesartan [Avapro 150 mg (*)] 75 mg PO DAILY 02/07/18 [Last Taken 04/13/18 09: 00] Zolpidem Tartrate [Ambien 5MG (*)] 5 mg PO HS PRN 02/07/18 [Last Taken 04/13/18 21:00] Acetaminophen [Tylenol 325mg (*)] 325 mg PO Q6HRS PRN 04/13/18 [Last Taken Unknown] Apixaban [Eliquis] 5 mg PO BID 04/13/18 [Last Taken 04/13/18 21:00] Estradiol [Estradiol 1 MG (*)] 1 mg PO HS 04/13/18 [Last Taken 04/13/18 21:00] Metoprolol Succinate Xr [Toprol Xl 25 mg (*)] 25 mg PO DAILY 04/13/18 [Last Taken 04/13/18 09:00] I have personally reviewed and updated: family history, medical history, social history, surgical history Past Medical History: In addition to hypertension, large hepatic cyst 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 Also calcific and tortuous aorta. 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 Review of Systems Review of Systems: Constitutional: Reports: weakness, other (fatigue) EENMT: Reports: no symptoms Cardiac: Reports: chest pain, irregular heart rate, lightheadedness, palpitations Respiratory: Reports: orthopnea, shortness of breath Gastrointestinal: Reports: no symptoms Genitourinary: Reports: no symptoms Muscolosketal: Reports: muscle stiffness Skin: Reports: no symptoms Neurological: Reports: no symptoms Hematologic/Lymphatic: Reports: no symptoms Immunologic/Allergy: Reports: no symptoms Physical Exam Physical Exam: Constitutional: no apparent distress Eyes: PERRL, anicteric sclera, EOMI Ears, Nose, Mouth, Throat: moist mucous membranes, hearing normal Cardiovascular: regular rate and rhythym, systolic murmur Respiratory: no respiratory distress, no rales or rhonchi Gastrointestinal: normoactive bowel sounds Skin: warm, normal color Neurologic: AAOx3 Psychiatric: interacting appropriately, not anxious Lab Data & Imaging Review 04/14/18 09:30 04/14/18 09:30 WBC 7.39 10^3/uL (3.80-9.50) 04/14/18 09:30 RBC 4.40 10^6/uL (4.18-5.33) 04/14/18 09:30 Hgb 12.6 g/dL (12.6-16.3) 04/14/18 09:30 Hct 38.7 % (38.0-47.0) 04/14/18 09:30 MCV 88.0 fL (81.5-99.8) 04/14/18 09:30 MCH 28.6 pg (27.9-34.1) 04/14/18 09:30 MCHC 32.6 g/dL (32.4-36.7) 04/14/18 09:30 RDW 14.7 % (11.5-15.2) 04/14/18 09:30 Plt Count 236 10^3/uL (150-400) 04/14/18 09:30 MPV 10.3 fL (8.7-11.7) 04/14/18 09:30 Neut % (Auto) 74.0 % (39.3-74.2) 04/14/18 09:30 Lymph % (Auto) 13.8 % (15.0-45.0) L 04/14/18 09:30 Coffey % (Auto) 9.2 % (4.5-13.0) 04/14/18 09:30 Eos % (Auto) 2.2 % (0.6-7.6) 04/14/18 09:30 Baso % (Auto) 0.5 % (0.3-1.7) 04/14/18 09:30 Nucleat RBC Rel Count 0.0 % (0.0-0.2) 04/14/18 09:30 Absolute Neuts (auto) 5.47 10^3/uL (1.70-6.50) 04/14/18 09:30 Absolute Lymphs (auto) 1.02 10^3/uL (1.00-3.00) 04/14/18 09:30 Absolute Monos (auto) 0.68 10^3/uL (0.30-0.80) 04/14/18 09:30 Absolute Eos (auto) 0.16 10^3/uL (0.03-0.40) 04/14/18 09:30 Absolute Basos (auto) 0.04 10^3/uL (0.02-0.10) 04/14/18 09:30 Absolute Nucleated RBC 0.00 10^3/uL (0-0.01) 04/14/18 09:30 Immature Gran % 0.3 % (0.0-1.1) 04/14/18 09:30 Immature Gran # 0.02 10^3/uL (0.00-0.10) 04/14/18 09:30 PT 15.2 SEC (12.0-15.0) H 04/14/18 09:30 INR 1.18 (0.83-1.16) H 04/14/18 09:30 Sodium 138 mEq/L (135-145) 04/14/18 09:30 Potassium 4.3 mEq/L (3.5-5.2) 04/14/18 09:30 Chloride 108 mEq/L (97-110) 04/14/18 09:30 Carbon Dioxide 25 mEq/l (22-31) 04/14/18 09:30 Anion Gap 5 mEq/L (6-14) L 04/14/18 09:30 BUN 20 mg/dL (7-23) 04/14/18 09:30 Creatinine 1.3 mg/dL (0.6-1.0) H 04/14/18 09:30 Estimated GFR 39 04/14/18 09:30 Glucose 93 mg/dL (70-100) 04/14/18 09:30 Calcium 9.0 mg/dL (8.5-10.4) 04/14/18 09:30 Magnesium 1.8 mg/dL (1.6-2.3) 04/14/18 09:30 Triglycerides 137 mg/dL (35-135) H 04/14/18 09:30 Cholesterol 190 mg/dL (140-220) 04/14/18 09:30 Cholesterol Risk Factr 0.5 (0.2-1.0) 04/14/18 09:30 LDL Cholesterol, Calc 105 mg/dL (80-100) H 04/14/18 09:30 LDL Risk Factor 0.6 (0.2-1.0) 04/14/18 09:30 VLDL Cholesterol 27 mg/dL (8-25) H 04/14/18 09:30 Non-HDL Cholesterol 132 mg/dL (90-129) H 04/14/18 09:30 HDL Cholesterol 58 mg/dL (40-85) 04/14/18 09:30 LDL/HDL Ratio 1.80 RATIO (1.00-3.22) 04/14/18 09:30 Cholesterol/HDL Ratio 3.28 RATIO (1.00-4.44) 04/14/18 09:30 Visualized and Interpreted EKG results: Yes EKG Interpretation: Positive for: normal sinsus rhythm, other (low voltage) Assessment & Plan Assessment: Severe mitral and tricuspid regurgitation with paroxysmal atrial fibrillation as well as hypertension Needs heart cath prior to planned valve surgery, Lizama Maze IV and planned left atrial appendage ligation Plan: As above.
--- NOTE | 2018-04-14 10:41 | PDDXCAT ---
Diagnostic Cath Note - . Date: 04/14/18 Senior Vice President And Chief Information Officer: Yong Indication: other (severe mitral regurgitation and class III CHF symptoms) - Procedure Access: left wrist Procedure: left heart catheterization, coronary angiography, left ventriculogram , right heart catheterization - Materials Left Heart Cath size: 5F Left Heart Cath materials: JL4.0, JR4.0 Right Heart Cath size: 5F Right Heart Cath materials: PWP catheter - Findings-Left Heart Catheterization LM: The left main is 5mm in size and short. The vessel bifurcates into a circumflex and left anterior descending artery. There is CALVIN III flow throughout. LAD: The left anterior descending artery is 3mm in size. There is no evidence of flow-limiting obstruction with CALVIN III flow. LCX: The left circumflex is 3mm in size. There is no evidence of flow-limiting obstruction with CALVIN III flow. RCA: The right coronary artery is 3mm in size and dominant. There is no evidence of flow-limiting obstruction and CALVIN III flow throughout. EDP: 27mmHg LVEF: 65% Wall motion: On the LV gram there is normal LV systolic function. The EF is 65% . There are no resting segmental wall motion abnormalities. The visualized portion of the thoracic aortic valve reveals three sinuses of valsalva most consistent with a trileaflet valve. There is 4+ mitral regurgitation. There is no gradient on pullback across the aortic valve. There is no evidence of iris dissection or aneurysm formation of the thoracic aorta. There is calcification in the aorta and aortic knob consistent with atherosclerosis. - Findings-Right Heart Catheterization RA: RV: 70/6/19 PA: 70/19/44; PA SAT 67.3% PAOP: AO: 151/87/114; AO SAT 96.2% CO: 5.06L/min CI: 2.92L/min/m^2 Complications: NONE Estimated blood loss: <50ml Closure method: TR Band Assessment: The patient has non-flow limiting coronary disease. She has normal ejection fraction at 65% and LVEDP at 27mmHg. The patient has severe 4+ mitral regurgitation and severe puilmonary hypertension as well as known severe tricuspid regurgitation The patient has calcifications noted in her aorta and aortic knob. There is no evidence of significant or flow limiting coronary obstruction. Plan: The patient has non flow-limiting obstruction in her coronary vessels. The patient has severe 4+ mitral regurgitation and would benefit from mitral valve replacement, tricuspid repair, a Lizama MAZE IV procedure and left atrial appendage ligation. The patient will require carotd ultrasound prior to her operation, whcih has not yet been performed. Surgery is tentatively scheduled for . Intervention: NONE Patient Problems: Problems Problem Status Onset Atrial fibrillation with rapid ventricular response Acute
[2018-04-14] MEDS ORDERED: ONDANSETRON 4 MG/2 ML VIAL IVP PRN (11:39)
[2018-04-14] MEDS ORDERED: ATROPINE SULFATE 1 MG/10 ML SYR IVP PRN (11:39)
[2018-04-14] MEDS ORDERED: NITROGLYCERIN 0.4 MG BTL SL PRN (11:39)
--- NOTE | 2018-04-14 23:44 | CPEKG ---
Test Reason : OPEN Blood Pressure : / mmHG Vent. Rate : 058 BPM Atrial Rate : 058 BPM P-R Int : 170 ms QRS Dur : 077 ms QT Int : 470 ms P-R-T Axes : 024 006 017 degrees QTc Int : 462 ms Sinus rhythm Low voltage, extremity leads Confirmed by Hernando Wright ([id number]) on 04/14/2018 11:43:32 PM Referred By: Confirmed By:Hernando Wright
== END 2018-04-14 15:37 | disposition home or self-care (01) ==
LOC: FCATH 09:17
PROVIDERS: ATTEND Internal Medicine Cardiovascular Disease
PROC: B2111ZZ Fluoroscopy of Multiple Coronary Arteries using Low Osmolar Contrast (ICD-10-PCS; principal; 2018-04-14)
PROC: B2151ZZ Fluoroscopy of Left Heart using Low Osmolar Contrast (ICD-10-PCS; principal; 2018-04-14)
PROC: 4A023N8 Measurement of Cardiac Sampling and Pressure, Bilateral, Percutaneous Approach (ICD-10-PCS; principal; 2018-04-14)
DX: I48.0 Paroxysmal atrial fibrillation (principal); I08.1 Rheumatic disorders of both mitral and tricuspid valves; I10 Essential (primary) hypertension; I27.20 Pulmonary hypertension, unspecified
CPT/HCPCS: 93005; 93460; 93880; C1769; J1644; J2250; J3010; Q9967

== ENCOUNTER 2018-04-18 05:47 | Inpatient (IN) | payer OTHER ==
[2018-04-18] MEDS ORDERED: AMINOCAPROIC ACID 5 GM/20 ML VIAL IV ONE (06:00)
[2018-04-18] MEDS ORDERED: CITRATE DEXTROSE SOLN 500 ML BAG MISC ONE (06:00)
[2018-04-18] MEDS ORDERED: PHENYLEPHRINE HCL 50 MG in NS 250 ML IV ONE (06:00)
[2018-04-18] MEDS ORDERED: INSULIN REGULAR HUMAN 100 UNIT in NS 100 ML IV ONE (06:00)
[2018-04-18] MEDS ORDERED: CARDIOPLEGIC SOLUTION 1,052.8 ML PF ONE (06:00)
[2018-04-18] MEDS ORDERED: NOREPINEPHRINE BITARTRATE 16 MG in NS 250 ML IV ONE (06:00)
[2018-04-18] MEDS ORDERED: MANNITOL 25% 12.5 GM/50 ML VIAL IVP ONE (06:00)
[2018-04-18] MEDS ORDERED: niCARdipine/NACL 200 ML IV ONE (06:02)
[2018-04-18] MEDS ORDERED: MUPIROCIN 2% 22 GM OINT NS ONE (06:02)
[2018-04-18] MEDS ORDERED: ceFAZolin 2 GM/DEXTROSE 100 ML IV ONE (06:02)
[2018-04-18] MEDS ORDERED: PROPOFOL 200 MG/20 ML VIAL ONE (06:44)
[2018-04-18] MEDS ORDERED: fentaNYL 250 MCG/5 ML INJ ONE ×2 (06:44)
[2018-04-18] MEDS ORDERED: AMINOCAPROIC ACID 5 GM/20 ML VIAL ONE ×2 (06:45→06:48)
[2018-04-18] MEDS ORDERED: PROTAMINE SULFATE 50 MG/5 ML VIAL IVP ONE (06:45)
[2018-04-18] MEDS ORDERED: CALCIUM CHLORIDE 1 GM/10 ML INJ ONE ×2 (06:45→06:47)
[2018-04-18] MEDS ORDERED: MILRINONE/DEXTROSE/100 ML BAG IV ONE (06:45)
[2018-04-18] MEDS ORDERED: ROCURONIUM 100 MG/10 ML VIAL ONE (06:46)
[2018-04-18] MEDS ORDERED: niCARdipine/NACL/200 ML BAG IV ONE (06:46)
[2018-04-18] MEDS ORDERED: AMIODARONE HCL 150 MG/3 ML VIAL ONE ×2 (06:46→06:48)
[2018-04-18] MEDS ORDERED: PHENYLEPHRINE 10 MG/ML SDV ONE (06:46)
[2018-04-18] MEDS ORDERED: HEPARIN 10,000 UNIT/10 ML MDV (1,000 UNIT/ML) ONE ×2 (06:46→06:48)
[2018-04-18] MEDS ORDERED: ADENOSINE 6 MG/2 ML VIAL ONE (06:46)
[2018-04-18] MEDS ORDERED: NA BICARBONATE 50 MEQ/50 ML VIAL ONE ×2 (06:46→12:39)
[2018-04-18] MEDS ORDERED: DOPamine/DEXTROSE 400 MG/250 ML BAG IV ONE (06:46)
[2018-04-18] MEDS ORDERED: EPINEPHrine 1 MG/ML INJ ONE (06:46)
--- NOTE | 2018-04-18 06:46 | PDANEPAE ---
ANE History of Present Illness mvr,tvr, barrios-maze, govind ligation ANE Past Medical History - Cardiovascular History Hx Hypertension: Yes Hx Arrhythmias: Yes Hx Chest Pain: No Hx Coronary Artery / Peripheral Vascular Disease: No Hx CHF / Valvular Disease: Yes Hx Palpitations: No Cardiovascular History Comment: CHRONIC A FIB. PREV CARDIOVERSION - Pulmonary History Hx COPD: No Hx Asthma/Reactive Airway Disease: No Hx Recent Upper Respiratory Infection: No Hx Oxygen in Use at Home: No Hx Sleep Apnea: No Sleep Apnea Screening Result - Last Documented: Negative - Neurologic History Hx Cerebrovascular Accident: No Hx Seizures: No Hx Dementia: No - Endocrine History Hx Diabetes: No Hypothyroid: No Hyperthyroid: No Obesity: no - Renal History Hx Renal Disorders: Yes Renal History Comment: CKD STAGE 3 - Liver History Hx Hepatic Disorders: No - Neurological & Psychiatric Hx Hx Neurological and Psychiatric Disorders: No - Cancer History Hx Cancer: No - Congenital Disorder History Hx Congenital Disorders: No - GI History GERD: no Hx Gastrointestinal Disorders: No - Other Health History Other Health History: INSOMNIA. MACULAR DEGENERATION - Chronic Pain History Chronic Pain: No - Surgical History Prior Surgeries: CARDIOVERSION 02/07/18. APPY. HYSTERECTOMY. ALLYN THUMBS RECONSTRUCTION. LT TOTAL KNEE. RT KNEE ACL REPAIR. ALLYN CATARACT. LT FELIX NEUROMA ANE Review of Systems Review of Systems: - Exercise capacity Exercise capacity: >=4 METS METS (RN): 4 METS ANE Patient History - Allergies Allergies/Adverse Reactions: codeine Allergy (Verified 04/13/18 10:10) Vomiting - Home Medications Home medications: home medication list seen and reviewed Home Medications: C/E/Zn/Cu/OM3/DHA/EPA/LUT/ZEAX [Preservision Areds 2 Softgel] 1 each PO HS 02/07 [Last Taken 04/17/18 19:00] Cholecalciferol Vit D3 [Vitamin D3 (*)] 5,000 units PO DAILY 02/07/18 [Last Taken 04/17/18 19:00] Irbesartan [Avapro 150 mg (*)] 75 mg PO DAILY 02/07/18 [Last Taken 04/17/18 07: 00] Zolpidem Tartrate [Ambien 5MG (*)] 5 mg PO HS PRN 02/07/18 [Last Taken 04/13/18 21:00] Apixaban [Eliquis] 5 mg PO BID 04/13/18 [Last Taken 04/13/18 21:00] Estradiol [Estradiol 1 MG (*)] 1 mg PO HS 04/13/18 [Last Taken 04/17/18 19:00] Metoprolol Succinate Xr [Toprol Xl 25 mg (*)] 25 mg PO DAILY 04/13/18 [Last Taken 04/17/18 07:00] Amiodarone HCl [Pacerone (*)] 200 mg PO HS 04/15/18 [Last Taken 04/17/18 19:00] - NPO status NPO Status: no food or drink >8 hours NPO Since - Liquids (Date): 04/17/18 NPO Since - Liquids (Time): 21:00 NPO Since - Solids (Date): 04/17/18 NPO Since - Solids (Time): 18:00 - Anes Hx Anes Hx: no prior problems - Smoking Hx Smoking Status: Never smoked ANE Labs/Vital Signs - Vital Signs Blood Pressure: 162/78 Heart Rate: 54 Respiratory Rate: 12 O2 Sat (%): 94 Height: 157.48 cm Weight: 72.121 kg ANE Physical Exam - Airway Mallampati Score: Class 2 Mouth exam: normal dental/mouth exam - Pulmonary Pulmonary: no respiratory distress - Cardiovascular Cardiovascular: regular rate and rhythym - ASA Status ASA Status: III ANE Anesthesia Plan Anesthesia Plan: general endotracheal anesthesia Lines/Monitors: arterial line, central line, TANGELA
[2018-04-18] MEDS ORDERED: ALBUMIN 5% 250 ML BOTTLE IV ONE (06:47)
[2018-04-18] MEDS ORDERED: NITROGLYCERIN/D5W 50 MG/250 ML BOTTLE IV ONE (06:47)
[2018-04-18] MEDS ORDERED: ceFAZolin 1 GM VIAL ONE (06:47)
[2018-04-18] MEDS ORDERED: LIDOCAINE 2% 2 ML INJ ONE ×2 (06:47)
[2018-04-18] MEDS ORDERED: SODIUM BICARBONATE 50 MEQ/50 ML SYR ONE (06:47)
[2018-04-18] MEDS ORDERED: SUCCINYLCHOLINE CHLORIDE 200 MG/10 ML SYR IVP ONE (06:47)
[2018-04-18] MEDS ORDERED: CITRATE DEXTROSE SOLN 500 ML BAG ONE (06:48)
[2018-04-18] MEDS ORDERED: MAGNESIUM SULFATE 1 GM/2 ML VIAL ONE (06:48)
[2018-04-18] MEDS ORDERED: LIDOCAINE 2% 100 MG/5 ML SYR ONE (06:48)
[2018-04-18] MEDS ORDERED: methylPREDNISolone SOD SUCC 1 GM/8 ML VIAL ONE (06:48)
[2018-04-18] MEDS ORDERED: MINERAL OIL 10 ML VIAL ONE (06:49)
--- NOTE | 2018-04-18 06:51 | PDHPUP ---
History & Physical Update H&P update statement: This history and physical update is based on an assessment of the patient which was completed after admission or registration (within 24 hours), but prior to the surgery/procedure. H&P update: H&P reviewed & patient examined, no change in patient's condition since H&P completed
[2018-04-18] MEDS ORDERED: LR 1,000 ML IV SCH (07:00)
[2018-04-18] MEDS ORDERED: MIDAZOLAM 2 MG/2 ML VIAL IVP ONE (07:02)
[2018-04-18] MEDS ORDERED: LABETALOL HCL 5 MG/ML 20 ML MDV ONE (07:12)
[2018-04-18] MEDS ORDERED: MIDAZOLAM 2 MG/2 ML VIAL ONE (07:16)
[2018-04-18] MEDS ORDERED: SUGAMMADEX SODIUM 200 MG/2 ML VIAL IVP ONE (11:13)
[2018-04-18] MEDS ORDERED: D50W 25 GM/50 ML SYR IVP PRN (11:47)
[2018-04-18] MEDS ORDERED: PANTOPRAZOLE SODIUM 40 MG VIAL IVP ONE ×2 (11:47→14:30)
[2018-04-18] MEDS ORDERED: POTASSIUM Cl (KCl) 50 ML IV PRN (11:47)
[2018-04-18] MEDS ORDERED: ONDANSETRON DISINTEGRATING 4 MG TAB PO PRN (11:47)
[2018-04-18] MEDS ORDERED: MEPERIDINE 25 MG/0.5 ML AMP IVP PRN (11:47)
[2018-04-18] MEDS ORDERED: POLYETHYLENE GLYCOL 3350 17 GM PKT PO PRN (11:47)
[2018-04-18] MEDS ORDERED: SODIUM CL NASAL 45 ML BTL EACHNARE PRN (11:47)
[2018-04-18] MEDS ORDERED: ACETAMINOPHEN 650 MG SUPP PR PRN (11:47)
[2018-04-18] MEDS ORDERED: ACETAMINOPHEN 325 MG TAB PO PRN (11:47)
[2018-04-18] MEDS ORDERED: LACTULOSE 20 GM/30 ML UDCUP PO PRN (11:47)
[2018-04-18] MEDS ORDERED: BISACODYL 10 MG SUPP PR PRN (11:47)
[2018-04-18] MEDS ORDERED: MAGNESIUM HYDROXIDE 30 ML UDCUP PO PRN (11:47)
[2018-04-18] MEDS ORDERED: NALOXONE HCL 0.4 MG/ML INJ IVP PRN (11:58)
--- NOTE | 2018-04-18 11:58 | POSTANESTH ---
Post Anesthetic Evaluation Cardiovascular Status: Tx Hyper/Hypo-tension, Other, See Comment (stable on infusions) Respiratory Status: Requires Airway Assist (stable on vent), Other, See Comment Level of Consciousness/Mental Status: Mildly Sleepy, Arousable Pain Control: Adequate, Prn Tx Ordered Nausea/Vomiting Control: Adequate, Prn Tx Ordered Complications Possibly Related to Anesthesia: None Noted
[2018-04-18] MEDS ORDERED: INSULIN REGULAR HUMAN 100 UNIT in NS 100 ML IV SCH (12:00)
[2018-04-18] MEDS ORDERED: niCARdipine/NACL 200 ML IV SCH (12:00)
[2018-04-18] MEDS ORDERED: NS 1,000 ML IV SCH (12:00)
[2018-04-18] MEDS: fentaNYL 100 MCG/2 ML INJ IVP PRN ×3 (12:24→16:45)
[2018-04-18] MEDS: DEXMEDETOMIDINE HCL 400 MCG in NS 100 ML IV SCH (12:25)
--- NOTE | 2018-04-18 12:40 | GOP ---
DATE OF OPERATION: 04/18/2018 SURGEON: Chito Kolb DO TOBACCO CLASSER: Deepak Brooks PA-C ANESTHESIOLOGIST: Ambrosio Rogel MD PREOPERATIVE DIAGNOSIS: 1. Severe mitral insufficiency. 2. Severe tricuspid insufficiency. 3. Persistent atrial fibrillation. POSTOPERATIVE DIAGNOSIS: 1. Severe mitral insufficiency. 2. Severe tricuspid insufficiency. 3. Persistent atrial fibrillation. 4. 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 PROCEDURE PERFORMED: 1. Mitral valve replacement with #23 Magna aortic valve prosthesis inverted into the mitral position . 2. Tricuspid valve repair with a #28 annuloplasty ring. 3. Complete left-sided and right-sided Lizama-Maze IV with sensing and testing utilizing radiofrequency and cryoablation. 4. Left atrial appendage occlusion with a 35 mm atrial clip. FINDINGS: DESCRIPTION OF PROCEDURE: Patient was consented for surgery and brought to the operating room, intub ated. Monitoring lines were placed. She was prepped and draped in sterile classical manner. Intrao perative transesophageal echo confirmed preoperative severe valvular insufficiency of the mitral and tricuspid valves. She was in a very slow sinus rhythm approximately 45 post-induction. After being prepped and draped in sterile classical manner, sternotomy was performed. She was hepari nized. Interrogation of the aorta with epiaortic ultrasound revealed a plaque at the distal segment of segment 2 posteriorly extending into the arch. The anterior surface in segment 2 and segment 1, a s well as the posterior surface in segment 1 and 2 were free of calcium. She was cannulated in the a scending aorta away from calcium without difficulty. Bicaval cannulas with tapes were placed. We th en performed sensing and testing on both pulmonary veins and showed no evidence of block on entrance or exit on either side. We then encircled the right pulmonary venous system after bypass was begun a nd ablated it multiple times until the overlapping lesions were less than 5 seconds each x3. We then retested it showed block both entrance and exit with testing and sensing. We then arrested the heart by reducing bypass flow to 500 cc and then gently approximating the proxim al portion of segment 2 where there was no plaque or calcification with cross-clamp and administering Del Nido solution per protocol, as well as topical hypothermia, and systemic cooling. We then encir cled the left pulmonary veins and ablated at 3 overlapping lesions when each of the last 3 lesions we re 5 seconds or less, staying away from the orifices of the pulmonary veins. We then excised the tip of the appendage and performed an ablation across the Coumadin ridge into the left superior pulmonar y vein multiple times. A 35 mm atrial clip was placed. The terminus of the circumflex and right cor onary systems were marked with methylene blue on the coronary sinus for subsequent ablation. We then exposed the mitral valve through the right superior pulmonary vein and performed a roof and floor le veronica with radiofrequency. We then performed the isthmus lesion with cryo overlapping the coronary si nus lesion, both for 3 minutes. A retractor was placed. The mitral valve was inspected. Initially, I thought it was rheumatic based on echo; however, it was basically just retracted leaflets with some calcium in the posterior anulus , mild. We then detached the anterior leaflet and incorporated it at 3 and 9 o'clock into a mitral v alve replacement with sizing for a 23 valve. Unfortunately, the mitral only goes to 25. I, therefor e, used an aortic Magna valve with a very tight fit despite it being a 23. This was secured with Cor -Knots. Testing of the ventricle revealed no regurgitation. The left atrium was closed in standard fashion. CO2 had been infused throughout the procedure. The patient was placed in Trendelenburg. There was no aortic insufficiency. The cross-clamp was rem jagdish with suction on the ascending aortic vent. Spontaneous cardiac activity was noted to resume. I then performed a vertical atriotomy on the right atrium after securing caval tapes and performed a r ight-sided ablation with the superior and inferior vena caval and the free wall lesion using radiofre quency and the isthmus lesion utilizing cryo. Circumferential sutures were placed on the tricuspid a nulus. She was sized for a 28 ring, which was secured in place. Distention of the ventricle reveale d no regurgitation. The right atrium was closed over felt due its very thin nature. 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 We then placed atrial and ventricular pacing wires, 2 pleural and 1 mediastinal drain. The patient w as weaned from bypass. There was no mitral regurgitation, except at the central coaptation point of the leaflets as expected. The tricuspid valve was without any significant leakage. Ventricular func tion was hyperdynamic. She was easily weaned from bypass. The heparin was reversed with protamine. Cannulas removed and oversewn. Four pacing wires, 2 pleural and 1 mediastinal drain were placed. T he thymic fat and pericardium were closed. The patient was returned to ICU in stable condition. /[id number]/MODL
[2018-04-18] MEDS ORDERED: SODIUM BICARBONATE 50 MEQ/50 ML SYR IVP ONE (12:45)
--- NOTE | 2018-04-18 14:00 | PDMN ---
Medical Necessity Medical necessity[place] [facility] [place] or repair 5 days: PAM INPT only: OP: MVR, Tricuspid valve repair, complete L /R Lizama maze IV , L atrial appendage occlusion with 35mm atrial clip AUTH # [id number] FOR CPT [id number] DONE IN PT.
[2018-04-18] MEDS: ceFAZolin 2 GM/DEXTROSE 100 ML IV SCH ×2 (14:12→22:02)
[2018-04-18] MEDS: ALBUMIN 5% 250 ML IV PRN (14:34)
--- NOTE | 2018-04-18 15:33 | ASMTCASEMG ---
Living Arrangements What is your living Answers: With Spouse arrangement? Who do you live with? Type Of Residence What kind of residence do Answers: House you live in? Discharge Plan Comments Coordination Status Comments Notes: Patient is an 82yo female who lives in [place], [place] with her . Patient has paroxysmal atrial fibrillation, severe mitral regurgitation and severe tricuspid regurgitation. She is here for open heart surgery with Dr. Kolb. OT/PT/cardiac rehab evals ordered for the patient. Follow up may be in [place]. D/C plan TBD. CM will follow. Date Signed: 04/18/2018 03:32 PM Electronically Signed By:Jessica Scott LCSW
[2018-04-18] MEDS: ONDANSETRON 4 MG/2 ML VIAL IVP PRN ×2 (16:45→20:29)
--- NOTE | 2018-04-18 17:17 | GCON ---
PULMONARY/CRITICAL CARE CONSULTATION. DATE OF CONSULTATION: 04/18/2018 REFERRING PHYSICIAN: Chito Kobl DO REASON FOR REFERRAL: Evaluation and management of anemia and smoking history. HISTORY: The patient is an 82-year-old woman with a history of long-standing persistent atrial fibrillation, failed multiple cardioversions. She was found to have mitral regurgitation and tricuspid regurgitation, and was felt to be a surgical candidate. She came from [place] to have surgery here. She underwent surgery today, with a mitral valve replacement and tricuspid valve repair as well as a Lizama Maze IV procedure. Her intraoperative course was unremarkable. She has been pacemaker dependent since surgery. She was extubated about 2 hours after surgery. She reports that her breathing is fairly comfortable. She states her pain control is good. PAST MEDICAL HISTORY: 1. Persistent atrial fibrillation. 2. Chronic kidney disease stage 3. 3. Coronary atherosclerosis, with an elevated coronary calcium score. MEDICATIONS: At the time of admission include: Ambien, amiodarone, Eliquis, irbesartan, metoprolol, and Tylenol. ALLERGIES: Codeine causes vomiting. SOCIAL HISTORY: The patient lives in [place]. She is here with family. She smoked for about 40 years, stopped about 20 years ago. FAMILY HISTORY: Unremarkable. REVIEW OF SYSTEMS: A 10-point review of systems adds nothing to the history of present illness. PHYSICAL EXAMINATION: GENERAL: The patient is somnolent but arousable and answers questions appropriately. VITAL SIGNS: Blood pressure is 102/61, heart rate 90, she is afebrile. Oxygen saturations are 96% on 4 L. HEENT: Normocephalic and atraumatic. No icterus. NECK: No JVD. Trachea is midline. CHEST: Clear to auscultation. CARDIAC: Regular rate and rhythm without murmur. ABDOMEN: Soft, nontender. Bowel sounds are present. EXTREMITIES: No clubbing, cyanosis, or edema. NEURO: Alert, oriented. No gross motor deficits. LABORATORY: Hemoglobin is 9.2, down from 12.6 preoperatively. Chemistry group shows a creatinine of 1.1, glucose is 82, down from a max of 158. Arterial blood gas intraoperatively showed a pH of 7.3 with a pO2 of 52, a CO2 of 38, and a bicarbonate of 22 on 50% oxygen. A chest x-ray shows diffuse interstitial thickening suggesting edema. Images reviewed by me. An ECG shows a paced rhythm. Preoperative echocardiogram showed an ejection fraction of 69% with concentric LVH and grade 3 diastolic dysfunction. She had severe MR and severe TR. Estimated pulmonary artery pressure was 72 mmHg. Right and left heart catheterization showed no flow-limiting disease. Her PA pressure was 70/19 with a mean of 44 and a pulmonary capillary wedge pressure of 25. ASSESSMENT: 1. Status post aortic valve replacement and tricuspid valve repair with a Lizama Maze procedure. The patient is currently in a paced rhythm and is hemodynamically stable. 2. Anemia. This is expected postoperative anemia after coronary artery bypass graft. She is currently getting Cell Saver autologous blood transfusion. 3. Severe pulmonary hypertension. This is likely due in large part to her valvular disease, and may improve with surgical correction of her mitral regurgitation. 4. History of smoking. The patient does not have a history of chronic obstructive pulmonary disease. PLAN: 1. Continue monitoring in the ICU. Get out of bed as tolerated later today, certainly by tomorrow. 2. Follow hemoglobin. 3. Follow blood sugars closely. 4. Albuterol can be used p.r.n., but I do not think it is warranted currently. /[id number]/MODL MTDD
[2018-04-18] MEDS ORDERED: NOREPINEPHRINE BITARTRATE 16 MG in NS 250 ML IV SCH (17:30)
[2018-04-18] MEDS: HYDROCODONE/APAP 5/325 TAB PO PRN (18:23)
[2018-04-18] MEDS: METOCLOPRAMIDE 10 MG/2 ML VIAL IVP PRN (18:50)
[2018-04-18] MEDS: traMADol 50 MG TAB PO PRN (20:08)
[2018-04-18] MEDS: SENNOSIDES/DOCUSATE SODIUM TAB PO SCH (20:08)
[2018-04-18] MEDS: CEPACOL LOZENGE PO PRN (20:08)
[2018-04-18] MEDS: FAMOTIDINE 20 MG/NACL 50 ML IV SCH (20:08)
[2018-04-18] MEDS: MUPIROCIN 2% 22 GM OINT NS SCH (20:59)
[2018-04-18] MEDS ORDERED: CHLORHEXIDINE GLUCONATE 15 ML UDL PO SCH (21:00)
[2018-04-19 05:02] LABS: PLATELET COUNT 109 10^3/uL (150-400)
[2018-04-19] MEDS: CEPACOL LOZENGE PO PRN (05:18)
[2018-04-19] MEDS: ceFAZolin 2 GM/DEXTROSE 100 ML IV SCH ×3 (06:22→20:39)
[2018-04-19] MEDS: HEPARIN 5,000 UNIT/0.5 ML INJ SC SCH ×3 (06:23→20:57)
[2018-04-19] MEDS ORDERED: ALBUMIN 5% 250 ML IV ONE (06:30)
[2018-04-19] MEDS: DEXMEDETOMIDINE HCL 400 MCG in NS 100 ML IV SCH (07:15)
[2018-04-19] MEDS: ALBUMIN 5% 250 ML IV PRN (07:30)
--- NOTE | 2018-04-19 07:50 | SOAPPROG ---
SOAP Progress Note Assessment/Plan: POD #1: MV replacement with #23 Magna aortic valve bioprosthesis, TV repair with #28 Physio MC3 ring, Lizama-Maze IV with AtriClip exclusion of ALEENA Severe MR/TR s/p MV bioprosthetic replacement and TV repair with annuloplasty - CTs to bulb suction, FC out, AL to remain as Levophed weaned off - Thromboprophylaxis as per Lizama-Maze protocol - PT/OT/MOTOR OVERHAULER - Continue ICU mgmt while on pressors Long-standing persistent atrial fibrillation s/p Lizama-Maze IV - Post-op rhythm bradycardic - continue atrial pacing for optimized HD - Possible need for PPM - Thromboprophylaxis with Coumadin, INR goal 2-3, duration as per protocol Acute post-op blood loss anemia and thrombocytopenia - Stable without the need for transfusions CKD stage 3, baseline Cr 1.3 - Adequate UOP without metabolic derangements - Avoid nephrotoxins - Permissive HTN for renal perfusion DVT prophylaxis - SCDs/heparin SQ Subjective: Pain when taking deep breaths. Denies SOB. Throat feels irritated and has a cough when trying to swallow. Objective: Vital Signs Temp Pulse Resp BP Pulse Ox 36.6 C 98 18 82/52 L 98 04/19/18 05:00 04/19/18 07:00 04/19/18 07:00 04/19/18 07:00 04/19/18 07:00 Laboratory Results 04/19/18 04:55 04/19/18 04:55 04/18/18 04/19/18 04/20/18 05:59 05:59 05:59 Intake Total 2377 Output Total 2125 Balance 252 Physical Exam - Physical Exam General Appearance: WD/WN, alert, no apparent distress EENT: No scleral icterus (R), No scleral icterus (L) Neck: normal inspection Respiratory: other (CTs without air leak), No respiratory distress Cardiac/Chest: bradycardia, other (a-paced) Abdomen: non-tender, soft, No distended Skin: normal color, warm/dry Extremities: No pedal edema Neuro/Psych: no motor/sensory deficits, alert, normal mood/affect, oriented x 3 ICD10 Worksheet Patient Problems: Problems Problem Status Onset Atrial fibrillation with rapid ventricular response Acute
[2018-04-19] MEDS: HYDROmorphONE/DILAUDID 1 MG/ML INJ IVP PRN ×5 (07:55→22:07)
[2018-04-19] MEDS ORDERED: ZOLPIDEM TARTRATE 5 MG TAB PO PRN (08:00)
[2018-04-19] MEDS: FAMOTIDINE 20 MG/NACL 50 ML IV SCH (08:38)
[2018-04-19] MEDS ORDERED: ALBUMIN 5% 250 ML BOTTLE IV ONE (09:09)
[2018-04-19] MEDS: ONDANSETRON 4 MG/2 ML VIAL IVP PRN ×3 (09:51→17:40)
[2018-04-19] MEDS: ASPIRIN 81 MG CHEWABLE TAB PO SCH (10:00)
[2018-04-19] MEDS: SENNOSIDES/DOCUSATE SODIUM TAB PO SCH ×2 (10:00→19:43)
[2018-04-19] MEDS: PANTOPRAZOLE SODIUM 40 MG TAB PO SCH (10:00)
[2018-04-19] MEDS: METOCLOPRAMIDE 10 MG/2 ML VIAL IVP PRN ×2 (10:33→17:40)
--- NOTE | 2018-04-19 13:27 | PDINTPN ---
[employer] Operations Consultant Progress Note Assessment/Plan: Assessment: Status post mitral valve replacement, tricuspid valve repair, Lizama Maze procedure : Doing well hemodynamically, but has significant postoperative sternal chest pain. Was using morphine, now changed to Dilaudid. Nausea/vomiting: Possibly due to anesthesia or narcotics. Partially responsive Zofran and Reglan. Acute kidney injury: Creatinine bumped up slightly. Good urine output Severe pulmonary hypertension: Likely due to elevated left heart filling pressures, will likely improve status post valve surgery Anemia: Hemoglobin stable, no signs of significant active postoperative bleeding Plan: Continue Zofran and Reglan. Try to minimize narcotics. Consider NG tube if vomiting persists. 04/19/18 13:24 Subjective: The patient complains of substernal chest pain as well as nausea/vomiting. Objective: Vital Signs Temp Pulse Resp BP Pulse Ox 37.2 C 67 15 110/57 L 98 04/19/18 12:00 04/19/18 13:00 04/19/18 13:00 04/19/18 13:00 04/19/18 13:00 Laboratory Results 04/19/18 04:55 04/18/18 04/19/18 04/20/18 05:59 05:59 05:59 Intake Total 2377 Output Total 2125 100 Balance 252 -100 Chest x-ray: Improved interstitial edema. Images reviewed by me. Physical Exam - Physical Exam General Appearance: alert, no apparent distress EENT: normal ENT inspection Neck: normal inspection Respiratory: lungs clear, normal breath sounds Cardiac/Chest: regular rate, rhythm, No edema Abdomen: normal bowel sounds, non-tender Skin: normal color, warm/dry Extremities: normal inspection Neuro/Psych: alert, normal mood/affect, oriented x 3 ICD10 Worksheet Patient Problems: Problems Problem Status Onset Atrial fibrillation with rapid ventricular response Acute
[2018-04-19] MEDS: MUPIROCIN 2% 22 GM OINT NS SCH ×2 (14:57→21:48)
[2018-04-19] MEDS: ESTRADIOL 1 MG TAB PO SCH (19:42)
[2018-04-19] MEDS: CITALOPRAM 20 MG TAB PO SCH (19:42)
[2018-04-19] MEDS ORDERED: NS 1,000 ML IV SCH (20:00)
[2018-04-19] MEDS: fentaNYL 100 MCG/2 ML INJ IVP PRN ×2 (20:52→23:47)
[2018-04-20] MEDS: HYDROmorphONE/DILAUDID 1 MG/ML INJ IVP PRN ×2 (02:18→04:56)
[2018-04-20] MEDS: HEPARIN 5,000 UNIT/0.5 ML INJ SC SCH ×3 (05:16→21:24)
[2018-04-20 05:18] LABS: INR 1.2 (0.83-1.16); PROTIME(PATIENT) 15.4 SEC (12.0-15.0)
[2018-04-20] MEDS: ACETAMINOPHEN 650 MG SUPP PR PRN ×2 (06:57→16:04)
--- NOTE | 2018-04-20 07:40 | SOAPPROG ---
SOAP Progress Note Assessment/Plan: POD #2: MV replacement with #23 Magna bioprosthesis, TV repair with #28 Physio MC3 ring, Lizama-Maze IV with AtriClip exclusion of ALEENA Severe MR/TR s/p MV bioprosthetic replacement and TV repair with annuloplasty - CTs to bulb suction, output trending down - Levophed required postop and successfully weaned Long-standing persistent atrial fibrillation s/p Lizama-Maze IV - Post-op rhythm bradycardic requiring A-pacing now in NSR x 24 hours, no ectopy - Thromboprophylaxis with coumadin per Lizama-Maze protocol, INR goal 2-3 for 3-6 months - Home amiodarone/metoprolol succinate held 2/2 SEAN and nausea Acute post-op blood loss anemia and thrombocytopenia - H/H stable without the need for transfusions Acute on chronic kidney disease stage 3 (baseline 1.3) - Trending upward (1.3->1.6->2), K+ 4.9 - Avoid nephrotoxins - Permissive HTN for renal perfusion - ?UOP given patient's incontinence DVT prophylaxis - SCDs - Heparin SQ until INR 1.8 Post-op nausea - prn zofran/reglan - limit unnecessary PO pills - encourage activity, PTOT - clear liquid diet Dispo: Change to SDU status Start low dose Coumadin Check K+ q6 hours, call for K+ >5.0 Recheck CBC,BMP,INR,CXR tomorrow Stop NS Keep CT Backup VVI 45 Subjective: Nausea yesterday and feels weak. Objective: Vital Signs Temp Pulse Resp BP Pulse Ox 37.2 C 76 18 127/67 H 95 04/20/18 02:00 04/20/18 06:00 04/20/18 06:00 04/20/18 06:00 04/20/18 06:00 Laboratory Results 04/20/18 05:00 04/20/18 05:00 04/19/18 04/20/18 04/21/18 05:59 05:59 05:59 Intake Total 2377 1924 Output Total 2125 650 Balance 252 1274 PT 15.4 SEC (12.0-15.0) H 04/20/18 05:00 INR 1.20 (0.83-1.16) H 04/20/18 05:00 - Physical Exam General Appearance: WD/WN, alert, no apparent distress EENT: No scleral icterus (R), No scleral icterus (L) Neck: normal inspection Respiratory: CT to bulbs, No respiratory distress, lung lange congested Cardiac/Chest: NSR in 70s Abdomen: non-tender, soft, No distended Skin: normal color, warm/dry Extremities: No pedal edema Neuro/Psych: no motor/sensory deficits, alert, normal mood/affect, oriented x 3 ICD10 Worksheet Patient Problems: Problems Problem Status Onset Atrial fibrillation with rapid ventricular response Acute
[2018-04-20] MEDS: ONDANSETRON 4 MG/2 ML VIAL IVP PRN (08:12)
[2018-04-20] MEDS: METOCLOPRAMIDE 10 MG/2 ML VIAL IVP PRN (08:12)
[2018-04-20] MEDS: PANTOPRAZOLE SODIUM 40 MG TAB PO SCH (08:34)
[2018-04-20] MEDS: SENNOSIDES/DOCUSATE SODIUM TAB PO SCH ×2 (08:34→21:24)
[2018-04-20] MEDS: ASPIRIN 81 MG CHEWABLE TAB PO SCH (08:35)
[2018-04-20] MEDS: MUPIROCIN 2% 22 GM OINT NS SCH (08:35)
[2018-04-20] MEDS ORDERED: FUROSEMIDE 20 MG/2 ML VIAL IVP ONE (10:27)
[2018-04-20] MEDS: AMIODARONE HCL 200 MG TAB PO SCH (11:19)
--- NOTE | 2018-04-20 15:12 | PDINTPN ---
Content Architect Progress Note Assessment/Plan: Assessment: Status post mitral valve replacement, tricuspid valve repair, Lizama Maze procedure : Doing well hemodynamically, postoperative chest pain improved. Nausea/vomiting: Possibly due to anesthesia or narcotics. Improved today Acute kidney injury: Creatinine continues to rise. Had low spontaneous voiding urine output, but 400 cc with straight cath Severe pulmonary hypertension: Likely due to elevated left heart filling pressures, will likely improve status post valve surgery Anemia: Hemoglobin stable, no signs of significant active postoperative bleeding Atrial fibrillation: Now in normal sinus rhythm Plan: Straight cath p.r.n.. Outpatient followup of pulmonary hypertension Follow creatinine 04/20/18 15:27 Subjective: Patient reports that her pain and nausea/vomiting have essentially resolved. Her strength is improved. She has been able to walk around the unit with assistance. Objective: Vital Signs Temp Pulse Resp BP Pulse Ox 36.3 C 68 18 129/73 H 97 04/20/18 12:00 04/20/18 12:00 04/20/18 12:00 04/20/18 12:00 04/20/18 12:00 Laboratory Results 04/20/18 05:00 04/20/18 11:45 04/19/18 04/20/18 04/21/18 05:59 05:59 05:59 Intake Total 2377 1924 240 Output Total 2125 650 730 Balance 252 1274 -490 PT 15.4 SEC (12.0-15.0) H 04/20/18 05:00 INR 1.20 (0.83-1.16) H 04/20/18 05:00 Chest x-ray: Increased left basilar atelectasis. Images reviewed by me. Physical Exam - Physical Exam General Appearance: alert, no apparent distress EENT: normal ENT inspection Neck: normal inspection Respiratory: crackles (Bases) Cardiac/Chest: regular rate, rhythm, No edema Abdomen: normal bowel sounds, non-tender Skin: normal color, warm/dry Extremities: normal inspection Neuro/Psych: alert, normal mood/affect, oriented x 3 ICD10 Worksheet Patient Problems: Problems Problem Status Onset Atrial fibrillation with rapid ventricular response Acute
--- NOTE | 2018-04-20 15:24 | ECHO ---
[email or web address] [address] Main: [phone] Fax: Transthoracic Echocardiogram Name: HEAVENLY CLINE MR#: [id number] Study Date: 04/20/2018 Study Time: 10:47 AM Date of : 1935 Age: 82 year(s) Height: 157.5 cm (62 in.) Weight: 77.57 kg (171 lb.) BSA: 1.79 m2 Gender: Female Examination: Echo Indication: Mitral Valve Replacement, Tricuspid Valve ring Image Quality: Contrast: Requested by: Chito Kolb BP: 133 mmHg/63 mmHg Heart Rate: Rhythm: Normal sinus rhythm Indication: Mitral Valve Replacement, Tricuspid Valve ring Procedure Staff Bleaching Supervisor: Juni Tony RDCS Reading Physician: Lonny Shine MD Requesting Provider: Conclusions: Normal size left ventricle. Normal global systolic LV function. EF is 71 %. No LVOT obstruction. The left atrium is mildly dilated. The right atrium is mildly dilated. There is a mitral valve replacement with #23 Magna aortic valve prosthesis inverted into the mitral position. The MV mean PG is 5 mmHg. One of the mitral valve strust is impinging on the left ventricular outflow tract. This does not create a significant gradient as noted above.. The aortic valve is tri-leaflet. There is no significant aortic valve regurgitation. No aortic valve stenosis is present. Trivial tricuspid valve regurgitation. Tricuspid valve repair with #28 annuloplasty ring.. When compared to the 04/11/18 study. The mitral and tricuspid valve have been replaced and repaired. Measurements: Chambers Valvular Assessment AV/MV Valvular Assessment TV/PV Normal Normal Normal Name Value Range Name Value Range Name Value Range Ao Frances (MM): 2.9 cm (2.2 cm-3.7 AV Vmax: 1.76 m/s (1 m/s-1.7 PV Vmax: 0.94 m/s (0.6 m/s-0.9 cm) m/s) m/s) IVSd (2D): 0.8 cm (0.6 cm-1.1 AV maxP mmHg ( - ) PV PGmax: 4 mmHg ( - ) cm) AV meanP mmHg ( - ) LVDd (2D): 4.3 cm (3.9 cm-5.3 LVOT Vmax: 1.31 m/s (0.7 m/s-1.1 cm) m/s) LVDs (2D): 2.6 cm (2.1 cm-4 ALINE (Vmax): 2.3 cm2 ( - ) cm) ALINE (VTI): 2.0 cm ( - ) LVPWd (2D): 1.0 cm ( - ) MV E Vmax: 1.61 m/s ( - ) Patient: HEAVENLY CLINE Study Date: 04/20/2018 Page 1 of 2 10:47 AM LVOTd 2.0 cm 2.0 cm mm MV A Vmax: 0.52 m/s ( - ) LVEF (2D): 71 (>=54 %) MV E/A: 3.10 ( - ) MV meanP mmHg ( - ) MV PHT: 0.087 s ( - ) MVA (Vmax): 1.4 m/s ( - ) MVA (PHT): 2.5 s ( - ) Continued Measurements: Chambers Valvular Assessment AV/MV Name Value Name Value LADs Lon.2 cm MV DecTime: 289 m/s LA Area: 22.0 cm2 MV VTI: 53.60 cm LA Volume: 53 ml LA Volume Index: 29.6 ml/m2 Findings: Left Ventricle: Normal size left ventricle. No LV hypertrophy. Normal global systolic LV function. EF is 71 %. No regional wall motion abnormality. No LVOT obstruction. The LVOT mean PG is 4 mmHg, Known Grade III diastolic dysfunction.. Right Ventricle: Normal size right ventricle. Normal RV function. Left Atrium: The left atrium is mildly dilated. Right Atrium: The right atrium is mildly dilated. Mitral Valve: No mitral stenosis is present. There is no mitral valve regurgitation. There is a mitral valve replacement with #23 Magna aortic valve prosthesis inverted into the mitral position. The MV mean PG is 5 mmHg. One of the mitral valve strust is impinging on the left ventricular outflow tract. This does not create a significant gradient as noted above.. Aortic Valve: The aortic valve is tri-leaflet. There is no significant aortic valve regurgitation. No aortic valve stenosis is present. Tricuspid Valve: Trivial tricuspid valve regurgitation. Tricuspid valve repair with #28 annuloplasty ring.. Pulmonic Valve: The pulmonic valve is normal in appearance and function. There is no pulmonic regurgitation seen. Aorta: The aorta is normal. Pericardium: No pericardial effusion. (No Signature Object) Patient: HEAVENLY CLINE Study Date: 04/20/2018 Page 2 of 2 10:47 AM [id number]
[2018-04-20] MEDS ORDERED: WARFARIN SODIUM 2.5 MG TAB PO ONE (16:00)
[2018-04-20] MEDS: HYDROCODONE/APAP 5/325 TAB PO PRN ×2 (16:04→20:08)
[2018-04-20] MEDS: CITALOPRAM 20 MG TAB PO SCH (20:08)
[2018-04-20] MEDS: ESTRADIOL 1 MG TAB PO SCH (21:30)
[2018-04-21] MEDS: HYDROCODONE/APAP 5/325 TAB PO PRN ×3 (01:12→15:29)
[2018-04-21] MEDS: traMADol 50 MG TAB PO PRN (03:45)
[2018-04-21 04:10] LABS: INR 1.68 (0.83-1.16); PROTIME(PATIENT) 19.9 SEC (12.0-15.0)
[2018-04-21] MEDS: HEPARIN 5,000 UNIT/0.5 ML INJ SC SCH (06:04)
--- NOTE | 2018-04-21 08:32 | SOAPPROG ---
SOAP Progress Note Assessment/Plan: POD #3: MV replacement with #23 Magna bioprosthesis, TV repair with #28 Physio MC3 ring, Lizama-Maze IV with AtriClip exclusion of ALEENA Severe MR/TR s/p MV bioprosthetic replacement and TV repair with annuloplasty - 2/3 chest tubes removed, last chest tube too much to pull - Levophed required immediately postop - Post op echo demonstrates MV mean gradient of 5 mmHg, no MR, trivial TR, normal EF Long-standing persistent atrial fibrillation s/p Lizama-Maze IV - Post-op rhythm bradycardic requiring A-pacing now in NSR x 48 hours, no ectopy - Thromboprophylaxis with coumadin per Lizama-Maze protocol, INR goal 2-3 for 3-6 months - Home amiodarone restarted yesterday Acute post-op blood loss anemia and thrombocytopenia - H/H stable without the need for transfusions - Recheck CBC PRN Acute on chronic kidney disease stage 3 (baseline 1.3) - Avoid nephrotoxins - Permissive HTN for renal perfusion, treat HTN if SBP >180 DVT prophylaxis - SCDs - Heparin SQ until INR 1.8 Post-op nausea, resolved - PRN zofran/reglan - Transition from clears to full & advance as tolerated Dispo: Change to PCU status Cont Coumadin @ 2.5 today Advance diet as tolerated to regular Recheck BMP,INR, CXR tomorrow Remove 2 of 3 chest tubes Wrap & cap V-wires, cut A-wires Restart home Toprol XL 25 mg PO daily Lasix 40 mg PO BID SNF possibly this upcoming weekend Dc q6 K checks Subjective: Nausea has improved. Feels better today. Objective: Vital Signs Temp Pulse Resp BP Pulse Ox 36.8 C 76 23 H 167/82 H 92 04/21/18 08:00 04/21/18 08:00 04/21/18 08:00 04/21/18 08:00 04/21/18 08:00 Laboratory Results 04/21/18 03:50 04/21/18 03:50 04/20/18 04/21/18 04/22/18 05:59 05:59 05:59 Intake Total 1924 1290 Output Total 650 1525 Balance 1274 -235 PT 19.9 SEC (12.0-15.0) H 04/21/18 03:50 INR 1.68 (0.83-1.16) H 04/21/18 03:50 General Appearance: WD/WN, alert, no apparent distress EENT: No scleral icterus (R), No scleral icterus (L) Neck: normal inspection Respiratory: CT to bulbs, No respiratory distress, lung lange congested & b/l crackles Cardiac/Chest: NSR in 70s Abdomen: non-tender, soft, No distended Skin: normal color, warm/dry Extremities: No pedal edema Neuro/Psych: no motor/sensory deficits, alert, normal mood/affect, oriented x 3 ICD10 Worksheet Patient Problems: Problems Problem Status Onset Atrial fibrillation with rapid ventricular response Acute
[2018-04-21] MEDS: AMIODARONE HCL 200 MG TAB PO SCH (09:30)
[2018-04-21] MEDS: PANTOPRAZOLE SODIUM 40 MG TAB PO SCH (09:30)
[2018-04-21] MEDS: SENNOSIDES/DOCUSATE SODIUM TAB PO SCH ×2 (09:30→21:10)
[2018-04-21] MEDS: ASPIRIN 81 MG CHEWABLE TAB PO SCH (09:30)
[2018-04-21] MEDS: METOPROLOL SUCCINATE XR 25 MG TAB PO SCH (11:39)
[2018-04-21] MEDS: FUROSEMIDE 40 MG TAB PO SCH ×2 (11:40→15:29)
[2018-04-21] MEDS ORDERED: WARFARIN SODIUM 2.5 MG TAB PO ONE (16:00)
--- NOTE | 2018-04-21 16:49 | ASMTCMCOM ---
CM Note CM Note Notes: PT is recommending SNF rehab for the patient. Spoke with the PT who confirmed patient was going to need SNF. Met with patient's family and discussed the steps towards placement. They have decided to review [facility], [facility], and [facility].Referrals have been sent to all 3 facilities. Patient's daughter, Cindi and friend, Ilsa will tour the programs tomorrow. CM will touch base tomorrow to get their first choice. Patient's is flying home tomorrow. Patient is wanting to complete rehab here because she has plans to then go on to [place] which was her original plan before this medical event. CM will follow. Date Signed: 04/21/2018 04:49 PM Electronically Signed By:Jessica Scott LCSW
[2018-04-21] MEDS: ESTRADIOL 1 MG TAB PO SCH (21:10)
[2018-04-21] MEDS: CITALOPRAM 20 MG TAB PO SCH (21:10)
[2018-04-22 07:33] LABS: INR 4.13 (0.83-1.16); PROTIME(PATIENT) 39.6 SEC (12.0-15.0)
[2018-04-22] MEDS ORDERED: LIDO/EPI 1% **Not for Epidural 20 ML MDV ONE (07:33)
--- NOTE | 2018-04-22 07:51 | SOAPPROG ---
SOAP Progress Note Assessment/Plan: POD #4: MV replacement with #23 Magna bioprosthesis, TV repair with #28 Physio MC3 ring, Lizama-Maze IV with AtriClip exclusion of ALEENA Severe MR/TR s/p MV bioprosthetic replacement and TV repair with annuloplasty - 2/3 chest tubes removed, last chest tube too much to pull - Levophed required immediately postop - Post op echo demonstrates MV mean gradient of 5 mmHg, no MR, trivial TR, normal EF Long-standing persistent atrial fibrillation s/p Lizama-Maze IV - Post-op rhythm bradycardic requiring A-pacing now in NSR x 72 hours, no ectopy - Thromboprophylaxis with coumadin per Lizama-Maze protocol, INR goal 2-3 for 3-6 months - Supratherapeutic INR - hold today's Coumadin and restart @ 1 when therapeutic (she only received x2 2.5 mg doses) - Home amiodarone, toprol previously restarted Acute post-op blood loss anemia and thrombocytopenia - H/H stable without the need for transfusions - Recheck CBC PRN Acute on chronic kidney disease stage 3 (baseline 1.3) - Avoid nephrotoxins - Permissive HTN for renal perfusion, treat HTN if SBP >180 DVT prophylaxis - SCDs - Coumadin Post-op nausea, resolved - PRN zofran/reglan Left pleural effusion, small -CXR if change in resp status Dispo: Hold Coumadin, if INR >5 possible Vit K PO Recheck K+ & INR today at 1700 Recheck BMP, INR, tomorrow Anticipate cutting V wires tomorrow Anticipate chest tube removal tomorrow Start scheduled potassium supplementation c Lasix Per CM, SNF placement at [facility], [facility], or [facility]; expect discharge Wednesday at earliest, likely Wednesday AM D/w Willie & daughter Cindi Subjective: Continues to improve. Objective: Vital Signs Temp Pulse Resp BP Pulse Ox 36.4 C 78 20 175/109 H 92 04/22/18 04:00 04/22/18 04:00 04/22/18 04:00 04/22/18 04:00 04/22/18 04:00 Laboratory Results 04/21/18 03:50 04/22/18 06:30 04/21/18 04/22/18 04/23/18 05:59 05:59 05:59 Intake Total 1290 1420 Output Total 1525 1275 250 Balance -235 145 -250 PT 39.6 SEC (12.0-15.0) H 04/22/18 06:30 INR 4.13 (0.83-1.16) H 04/22/18 06:30 CXR - slightly improved General Appearance: WD/WN, alert, no apparent distress EENT: No scleral icterus (R), No scleral icterus (L) Neck: normal inspection Respiratory: CT to bulbs, No respiratory distress, lung lange congested & b/l crackles Cardiac/Chest: NSR in 70s Abdomen: non-tender, soft, No distended Skin: normal color, warm/dry Extremities: No pedal edema Neuro/Psych: no motor/sensory deficits, alert, normal mood/affect, oriented x 3 ICD10 Worksheet Patient Problems: Problems Problem Status Onset Atrial fibrillation with rapid ventricular response Acute
[2018-04-22] MEDS: FUROSEMIDE 40 MG TAB PO SCH ×2 (08:24→14:36)
[2018-04-22] MEDS: SENNOSIDES/DOCUSATE SODIUM TAB PO SCH ×2 (08:25→21:21)
[2018-04-22] MEDS: METOPROLOL SUCCINATE XR 25 MG TAB PO SCH (08:26)
[2018-04-22] MEDS: ASPIRIN 81 MG CHEWABLE TAB PO SCH (08:30)
[2018-04-22] MEDS: PANTOPRAZOLE SODIUM 40 MG TAB PO SCH (08:32)
[2018-04-22] MEDS: AMIODARONE HCL 200 MG TAB PO SCH (08:33)
[2018-04-22] MEDS: HYDROCODONE/APAP 5/325 TAB PO PRN ×2 (15:15→21:21)
[2018-04-22 18:12] LABS: INR 4.07 (0.83-1.16); PROTIME(PATIENT) 39.1 SEC (12.0-15.0)
--- NOTE | 2018-04-22 20:46 | ASMTCMCOM ---
CM Note CM Note Notes: Patient's family has chosen [facility] as their first choice and [facility] as their second choice. [facility] has accepted patient. Discharge plan is [facility] when patient is medically clear. CM will follow. Date Signed: 04/22/2018 04:05 PM Electronically Signed By:Jessica Scott LCSW
--- NOTE | 2018-04-22 20:47 | ASMTCMCOM ---
CM Note CM Note Notes: 04/22/2018 Case Management Note Met w/pt and family. Family has chosen [facility] as first choice and [facility] as second. Notified [facility] to ask for auth. Case Management d/c poc: [facility] once approved by insurance. Case Management to follow. Date Signed: 04/22/2018 04:24 PM Electronically Signed By:Annabelle Marina RN
[2018-04-22] MEDS: CITALOPRAM 20 MG TAB PO SCH (21:21)
[2018-04-22] MEDS: ESTRADIOL 1 MG TAB PO SCH (21:21)
[2018-04-22] MEDS: POTASSIUM CL 20 MEQ TAB PO SCH (21:21)
[2018-04-23] MEDS: HYDROCODONE/APAP 5/325 TAB PO PRN ×4 (00:18→19:56)
[2018-04-23] MEDS: traMADol 50 MG TAB PO PRN (03:42)
[2018-04-23 05:25] LABS: INR 3.45 (0.83-1.16); PROTIME(PATIENT) 34.5 SEC (12.0-15.0)
[2018-04-23] MEDS: PANTOPRAZOLE SODIUM 40 MG TAB PO SCH (08:23)
[2018-04-23] MEDS: SENNOSIDES/DOCUSATE SODIUM TAB PO SCH ×2 (08:23→19:58)
[2018-04-23] MEDS: ASPIRIN 81 MG CHEWABLE TAB PO SCH (08:24)
[2018-04-23] MEDS: POTASSIUM CL 20 MEQ TAB PO SCH ×2 (08:24→19:59)
[2018-04-23] MEDS: AMIODARONE HCL 200 MG TAB PO SCH (08:24)
[2018-04-23] MEDS: FUROSEMIDE 40 MG TAB PO SCH ×2 (08:24→16:48)
[2018-04-23] MEDS: METOPROLOL SUCCINATE XR 25 MG TAB PO SCH (08:24)
--- NOTE | 2018-04-23 08:29 | SOAPPROG ---
SOAP Progress Note Assessment/Plan: POD #5: MV replacement with #23 Magna bioprosthesis, TV repair with #28 Physio MC3 ring, Lizama-Maze IV with AtriClip exclusion of ALEENA Severe MR/TR s/p MV bioprosthetic replacement and TV repair with annuloplasty - Will cut pacing wires at the skin today and remove remaining chest tube. - Levophed required immediately postop - Post op echo demonstrates MV mean gradient of 5 mmHg, no MR, trivial TR, normal EF Long-standing persistent atrial fibrillation s/p Lizama-Maze IV - Post-op rhythm bradycardic requiring A-pacing now in NSR x 4 days, no ectopy - Thromboprophylaxis with Coumadin per Lizama-Maze protocol, INR goal 2-3 for 3-6 months - Supratherapeutic INR - continue to hold today's Coumadin and restart @ 1 when therapeutic (she only received x2 2.5 mg doses) - On home Amiodarone and Toprol. Hypertension - SBP 170's this am. - Permissive HTN for renal perfusion, will treat if SBP >180 Acute post-op blood loss anemia and thrombocytopenia - H/H stable without the need for transfusions - Recheck CBC PRN Acute on chronic kidney disease stage 3 (baseline 1.3) - Avoid nephrotoxins - Permissive HTN for renal perfusion, treat HTN if SBP >180 DVT prophylaxis - SCDs - Coumadin when INR not supratherapeutic Post-op nausea, resolved - PRN zofran/reglan Left pleural effusion, small -CXR if change in resp status Dispo: Continue to hold Coumadin today. Switch pain meds to Percocet today. Recheck BMP, INR, tomorrow Will cut V wires today. Will d/c remaining chest tube today. Per CM, SNF placement at [facility], [facility], or [facility]; expect discharge tomorrow at earliest, likely Wednesday AM Subjective: Patient reports poor pain control. Also has not had a BM yet. Passing flatus. Objective: Vital Signs Temp Pulse Resp BP Pulse Ox 36.7 C 65 20 174/90 H 99 04/23/18 07:08 04/23/18 07:08 04/23/18 07:08 04/23/18 07:08 04/23/18 07:08 Laboratory Results 04/21/18 03:50 04/23/18 05:05 04/22/18 04/23/18 04/24/18 05:59 05:59 05:59 Intake Total 1420 1220 Output Total 1275 2390 Balance 145 -1170 PT 34.5 SEC (12.0-15.0) H 04/23/18 05:05 INR 3.45 (0.83-1.16) H 04/23/18 05:05 Physical Exam - Physical Exam General Appearance: WD/WN, alert, no apparent distress EENT: normal ENT inspection Neck: supple Respiratory: lungs clear, decreased breath sounds (bases), other (No wheezing, rhonchi, rales. ) Cardiac/Chest: regular rate, rhythm, other (No murmurs, rubs, gallops. Sternum stable. Sternotomy c/d/i. ) Abdomen: normal bowel sounds, non-tender, soft, other (Non-distended. ) Skin: normal color, warm/dry Extremities: other (Warm, minimal lower extremity edema. ) Neuro/Psych: alert, normal mood/affect, oriented x 3 ICD10 Worksheet Patient Problems: Problems Problem Status Onset Atrial fibrillation with rapid ventricular response Acute
[2018-04-23] MEDS ORDERED: CANN-EASE 2 GM TUBE TP PRN (09:27)
[2018-04-23] MEDS ORDERED: OXYCODONE/APAP 5/325 TAB PO PRN (09:28)
[2018-04-23] MEDS: ESTRADIOL 1 MG TAB PO SCH (19:57)
[2018-04-23] MEDS: CITALOPRAM 20 MG TAB PO SCH (19:58)
[2018-04-24] MEDS: HYDROCODONE/APAP 5/325 TAB PO PRN ×4 (01:24→21:50)
[2018-04-24 05:46] LABS: INR 2.9 (0.83-1.16); PROTIME(PATIENT) 30.2 SEC (12.0-15.0)
--- NOTE | 2018-04-24 08:43 | SOAPPROG ---
SOAP Progress Note Assessment/Plan: POD #6: MV replacement with #23 Magna bioprosthesis, TV repair with #28 Physio MC3 ring, Lizama-Maze IV with AtriClip exclusion of ALEENA Severe MR/TR s/p MV bioprosthetic replacement and TV repair with annuloplasty - Chest tubes out and all pacing wires already cut at skin. - Levophed required immediately postop - Post op echo demonstrates MV mean gradient of 5 mmHg, no MR, trivial TR, normal EF Long-standing persistent atrial fibrillation s/p Lizama-Maze IV - Post-op rhythm bradycardic requiring A-pacing now in NSR over past several days without ectopy. - Thromboprophylaxis with Coumadin per Lizama-Maze protocol, INR goal 2-3 for 3-6 months - Therapeutic INR of 2.9 (3.45). Will still hold Coumadin for today. - On home Amiodarone and Toprol. Hypertension - Will start Irbesartan 75mg today (half of home dose). - On Toprol Acute post-op blood loss anemia and thrombocytopenia - H/H stable without the need for transfusions - Recheck CBC PRN Acute on chronic kidney disease stage 3 (baseline 1.3) - Stable with BUN 36/Cr 1.0 DVT prophylaxis - SCDs - On Coumadin when appropriate. Post-op nausea, resolved - PRN zofran/reglan Left pleural effusion/atelectasis - Stable - On Lasix. Will encourage aggressive IS/ambulation. Dispo: Hold Coumadin for today. Resume half dose of home Irbesartan. Supplement K. D/c TLC. Pain controlled with [place]. Recheck BMP, INR tomorrow Per CM, SNF placement at [facility] or [facility] pending insurance approval; Expect discharge possibly Wednesday. Subjective: Patient reports good pain control with [place]. She states that she will try to use her IS more today. Objective: Vital Signs Temp Pulse Resp BP Pulse Ox 36.7 C 78 18 158/108 H 81 L 04/24/18 07:12 04/24/18 07:12 04/24/18 07:12 04/24/18 07:12 04/24/18 08:00 Laboratory Results 04/21/18 03:50 04/24/18 05:20 04/23/18 04/24/18 04/25/18 05:59 05:59 05:59 Intake Total 1220 780 Output Total 2390 1650 Balance -1170 -870 PT 30.2 SEC (12.0-15.0) H 04/24/18 05:20 INR 2.90 (0.83-1.16) H 04/24/18 05:20 Physical Exam - Physical Exam General Appearance: WD/WN, alert, no apparent distress EENT: normal ENT inspection Neck: supple Respiratory: lungs clear, decreased breath sounds (left mid lung field and bilat bases), other (No wheezing, rhonchi, rales.) Cardiac/Chest: regular rate, rhythm, other (No murmurs, rubs, gallops. Sternum stable, sternotomy c/d/i. ) Abdomen: normal bowel sounds, non-tender, soft, other (non-distended.) Skin: normal color, warm/dry Extremities: other (Warm, no edema) Neuro/Psych: alert, normal mood/affect, oriented x 3 ICD10 Worksheet Patient Problems: Problems Problem Status Onset Atrial fibrillation with rapid ventricular response Acute
[2018-04-24] MEDS ORDERED: IRBESARTAN 75 MG TAB PO SCH (09:00)
[2018-04-24] MEDS ORDERED: PROTOCOL POTASSIUM 1 DOSE MISC PRN (09:39)
[2018-04-24] MEDS ORDERED: POTASSIUM CL 10 MEQ TAB PO ONE ×2 (09:55→21:34)
[2018-04-24] MEDS ORDERED: SENNOSIDES/DOCUSATE SODIUM TAB PO PRN (09:56)
[2018-04-24] MEDS: FUROSEMIDE 40 MG TAB PO SCH ×2 (10:00→15:38)
[2018-04-24] MEDS: METOPROLOL SUCCINATE XR 25 MG TAB PO SCH (10:00)
[2018-04-24] MEDS: POTASSIUM CL 20 MEQ TAB PO SCH ×2 (10:00→21:49)
[2018-04-24] MEDS: PANTOPRAZOLE SODIUM 40 MG TAB PO SCH (10:00)
[2018-04-24] MEDS: AMIODARONE HCL 200 MG TAB PO SCH (10:00)
[2018-04-24] MEDS: ASPIRIN 81 MG CHEWABLE TAB PO SCH (10:00)
[2018-04-24] MEDS ORDERED: WARFARIN SODIUM 1 MG TAB PO ONE (16:00)
--- NOTE | 2018-04-24 16:27 | ASMTCMCOM ---
CM Note CM Note Notes: CM notified per [facility] that authorization for patient has been obtained. Likely to be ready to transfer tomorrow. CM to follow. Plan: Dc to [facility] tomorrow. Date Signed: 04/24/2018 04:26 PM Electronically Signed By:Ema Clark RN
[2018-04-24] MEDS: SENNOSIDES/DOCUSATE SODIUM TAB PO SCH (19:37)
[2018-04-24] MEDS: ESTRADIOL 1 MG TAB PO SCH (21:50)
[2018-04-24] MEDS: CITALOPRAM 20 MG TAB PO SCH (21:50)
[2018-04-25 04:29] LABS: INR 2.44 (0.83-1.16); PROTIME(PATIENT) 26.5 SEC (12.0-15.0)
[2018-04-25] MEDS: HYDROCODONE/APAP 5/325 TAB PO PRN ×3 (05:20→13:42)
[2018-04-25 07:30] VITALS: BP 143/90
--- NOTE | 2018-04-25 08:14 | SOAPPROG ---
SOAP Progress Note Assessment/Plan: Assessment: POD#7 MVR#23 Magna bioprosthesis, TV repair #28 MC3 ring, Lizama-Maze IV with AtriClip exclusion of ALEENA Long-standing persistent atrial arrhythmias/chronically anticoagulated on Coumadin - Suitable candidate for Lizama-Maze IV. Postop rhythm SB/SR. Amio and BB prophylaxis resumed without incident. TCPWs cut at skin. Antithrombotic prophylaxis switched to Coumadin. Target INR 2.5. Duration as per Maze protocol. Adjunctive baby ASA for MVR. Severe mitral and tricuspid insufficiency - Thickened and retracted mitral leaflets req tissue valve replacement. Dilated tricuspid annulus amenable to ring annuloplasty. Antithrombotic prophylaxis as per Maze. Chronic class III dCHF - Extubated afternoon of surgery without incident. No prolonged vasoactive support. No sig volume overload. No delay in chest tube removal. Residual left pleural effusion responsive to diuresis. Skilled for SNF by PT. Acute expected blood loss anemia with thrombocytopenia - Stable. No transfusions needed. VTE prophylaxis with SCDs and coumadin. Acute on chronic kidney disease stage 3 (baseline 1.3) - Bump in Cr to peak of 2 on POD#2. Prompt resolution with careful fluid management and permissive HTN. Subsequent active diuresis well tolerated. Hypertension - Stable on home meds. Tight control deferred d/t recent SEAN. Plan: Relax diuresis. Resume Coumadin at 1 mg daily. Ok for tx to SNF today if insurance auth approved. Instructions re diet, meds, activity, wound care and f/u reviewed. 04/25/18 08:14 Subjective: Feels well. Pain controlled. Improving mobility and stamina. No acute concerns. Objective: Vital Signs Temp Pulse Resp BP Pulse Ox 37.0 C 74 17 143/90 H 99 04/25/18 07:28 04/25/18 07:28 04/25/18 07:28 04/25/18 07:28 04/25/18 07:28 Laboratory Results 04/21/18 03:50 04/25/18 04:00 04/24/18 04/25/18 04/26/18 05:59 05:59 05:59 Intake Total 780 940 Output Total 1650 1850 Balance -870 -910 PT 26.5 SEC (12.0-15.0) H 04/25/18 04:00 INR 2.44 (0.83-1.16) H 04/25/18 04:00 Holding SR. Improved BP on ARB. Borderline suppl O2 req. Satisfactory fluid balance. 2.5 kg below admit wt. INR falling appropriately. K and Cr stable. Physical Exam - Physical Exam General Appearance: alert, no apparent distress Respiratory: crackles (left base o/w CTA), other (chest tube site clean and dry) Cardiac/Chest: regular rate, rhythm, other (Sternum grossly stable. Sternotomy CDI.) Abdomen: non-tender, soft Skin: warm/dry Extremities: other (no visible edema) ICD10 Worksheet Patient Problems: Problems Problem Status Onset Atrial fibrillation with rapid ventricular response Acute
[2018-04-25] MEDS ORDERED: IRBESARTAN 150 MG TAB PO SCH (09:00)
[2018-04-25] MEDS ORDERED: POTASSIUM CL 10 MEQ TAB PO SCH (09:00)
[2018-04-25] MEDS ORDERED: CHOLECALCIFEROL VIT D3 1,000 UNITS TAB PO SCH (09:00)
[2018-04-25] MEDS ORDERED: FUROSEMIDE 40 MG TAB PO SCH (09:00)
[2018-04-25] MEDS ORDERED: METOPROLOL SUCCINATE XR 25 MG TAB PO SCH (09:00)
[2018-04-25] MEDS: ASPIRIN 81 MG CHEWABLE TAB PO SCH (09:14)
[2018-04-25] MEDS: PANTOPRAZOLE SODIUM 40 MG TAB PO SCH (09:15)
[2018-04-25] MEDS: METOPROLOL SUCCINATE XR 25 MG TAB PO SCH (09:15)
--- NOTE | 2018-04-25 10:08 | PDIAF ---
- Diagnosis Diagnosis: atrial arrhythmias, MR, TR s/p Maze, tissue MVR, TVA Code Status: Full Code - Medication Management Additional Medication Instructions: Hold aspirin for INR > 3 Discharge Medications: electronically signed and located in the Home Medication List. PICC Care - Routine: N/A - Orders Services needed: Registered Nurse (cardiorespiratory, wound and therapeutic drug monitoring), Physical Therapy (2x daily), Occupational Therapy (once daily) Isolation Type: None Oxygen: prn SpO2 < 90% Diet Recommendation: cardiac -low fat low salt, fluid restriction (use comment for amount) (2 liters daily until off lasix) Diet Texture: Regular Texture Diet, Thin Liquids, Meds Whole w/Liquids Weigh Patient: daily Grimaldo: Not applicable Wound Care Instructions: daily soap and water. okay to leave open to air. avoid ointments Activity/Weight Bearing Restrictions: sternal precautions x 4 weeks. avoid push pull activities. no lifting > 10 lbs with an outstretched arm Equipment: 4wheeled walker with chair Additional Instructions: Call [facility] cardiac rehab to enroll in phase 2 classes once released from rehab. Anticoagulation clinic at [facility] once released from rehab. Sternal precautions x 4 weeks. Avoid lifting > 10lbs with an outstretched arm. Avoid push/pull activities. Cleanse wounds once daily with soap and water. Avoid underwater immersion (pool , hot tub, bath) until scabs off. Ok to leave all wounds open to air. Avoid creams or ointments until scabs off. Elevate low legs at rest. Avoid prolonged standing or dangling. Log daily vital signs: weight, resting heart rate over 1 minute, blood pressure , +/- pulse oximetry. Call [facility] for overnight weight gain > 2lbs, weekly gain > 5lbs or worsening leg swelling. Call [facility] for resting heart rate > 120 or < 50 OR for systolic blood pressure consistently < 90 or > 160, or diastolic pressure consistently > 100. Target oxygen saturation > 89%. Adjustments per rehab. Please obtain a chest xray and labwork prior to surgical appointment. Use requisition form attached to appointment card. Chest x-rays and labwork don't require an appointment. Go to the Emergency Room entrance at the [facility] location. Sign in at the computer kiosk in the entryway. You will be given a number & may sit in the waiting area until called. You will be registered and directed to Imaging and the laboratory on the 1st floor. This process can take up to an hour. Please allow at least 45 min before your appt to get testing done. Ok to use [id number] medications for iron supplementation, bowel function or pain. Consider Tylenol 500-650 mg with meals and before bed. Max daily dose of Tylenol 3000 mg. Each [place] contains 325 mg of Tylenol. Avoid nonsteroidal anti-inflammatories (ie. Ibuprofen, advil, motrin, aleve) while on Coumadin and aspirin. Hold aspirin for INR > 3. Lifelong antibiotic prophylaxis prior to dental, respiratory tract, or skin/ soft tissue procedures. - Labs/Radiology BMP Date: 05/03/18 (at [facility]) CBC w/diff Date: 05/03/18 (at [facility]) PT/INR Date: 04/27/18 (results to [facility] if < 1.8 or > 3) Imaging Orders: at [facility] prior to surgical appointment Call or Fax Lab and Imaging Results to: Stacy Verduzco RN [facility], [phone] - Follow Up Care Current Providers and Referrals: BARRY RAINES MD [Other] Chito Kolb DO [Doctor of Osteopathy] - 05/03/18 11:30 am Branden Beach MD [Medical Doctor] - 05/13/18 11:30 am ()
--- NOTE | 2018-04-25 10:59 | PDDCSUM ---
Discharge Summary Discharge Summary: DATE OF ADMISSION: 04/18/18 DATE OF DISCHARGE: 04/25/18 DISPOSITION: Transferred to [facility] PRINCIPAL DISCHARGE DIAGNOSES: 1. Longstanding persistent atrial fibrillation treated with Lizama Maze IV ablative procedure with exclusion of the left atrial appendage 2. Severe mitral regurgitation treated with mitral valve replacement with a bioprosthesis 3. Severe tricuspid regurgitation treated with ring annuloplasty 4. Acute on chronic renal insufficiency 5. Acute expected blood loss anemia with thrombocytopenia FOLLOW UP APPOINTMENTS: 1. CV surgery: with Dr Kolb at [facility] on 05/03 at 11:30 am. 2. Cardiology: with Dr Beach at [facility] on 05/13 at 11:30 am. FOLLOW UP TESTIN. INR on 04/27. Results to [facility]. 2. INR, CBC and BMP on 05/03 prior to surgical appointment. 3. CXR on 05/03 prior to surgical appointment. ALLERGIES/SENSITIVITIES: Codeine causing vomiting DISCHARGE MEDICATIONS: see medical administration record for full details Essentially as on admission (Ambien, Vit D3, Preservision softgel vits, Irbesartan, Toprol XL, Amiodarone, Estradiol, Celexa) with the following adjustments: 1. Hold Eliquis 5 mg BID. NEW prescriptions: 1. Coumadin 1 mg daily or as directed by INR. Target INR 2.5. 2. Lasix 40 mg daily. 3. Klor-Con 10 meq daily. 4. [place] 5/325 1-2 tabs q 4-8 hrs prn incisional discomfort. 5. Oxygen prn SpO2 < 90%. CONSULTANTS: Pulmonology/critical care ([place]) PROCEDURES/IMAGIN/21 ([place]): Mitral valve replacement with a 23 mm Martino Magna bovine pericardial aortic bioprosthesis inverted into the mitral position. Tricuspid valve annuloplasty with a 28 mm Martino MC3 ring. Lizama-Maze IV procedure utilizing bipolar radiofrequency and cryothermy for ablative lesions and an AtriClip for exclusion of the left atrial appendage. 04/20 (Fát[place]): Transthoracic echocardiogram: Nl BiV size and systolic fx. LVEF 71%. Mildly dilated atria. Nl mitral bioprosthetic fx. One MV strut impinging on the LVOT without creation of a gradient. Trivial TR. No pericardial effusion. HISTORY OF PRESENT ILLNESS: 82 yo female with longstanding persistent atrial fibrillation, progressive multivalvular insufficiency, worsening pulmonary hypertension, and chronic class 3 diastolic CHF on maximal medical therapy, admitted for elective open heart surgery. Resident of [facility] with intent to return there after completing phase 2 cardiac rehab. OTHER PERTINENT PAST MEDICAL HISTORY: Paroxysmal atrial flutter, paroxysmal atrial tachycardia, more recent persistent atrial fibrillation refractory to multiple DC CVSN, chronic anticoagulation, coronary atherosclerosis, carotid atherosclerosis, tortuous and calcified ascending aorta, hyperlipidemia, HTN, CKD3 (baseline Cr 1.3), chronic grade 3 diastolic dysfunction ABBREVIATED HOSPITAL COURSE BY ACTIVE PROBLEM LIST: 1. Long-standing persistent atrial fibrillation/chronically anticoagulated on Eliquis - Suitable candidate for Lizama-Maze IV. Postop rhythm SB/SR. Amio and BB prophylaxis resumed without incident. TCPWs cut at skin. Antithrombotic prophylaxis switched to Coumadin. INR range 2-3. Duration as per Maze protocol. Adjunctive baby ASA for MVR. 2. Severe mitral and tricuspid insufficiency - Thickened and retracted mitral leaflets req tissue valve replacement. Dilated tricuspid annulus amenable to ring annuloplasty. Antithrombotic prophylaxis as per Maze. 3. Chronic class III dCHF - Extubated afternoon of surgery without incident. No prolonged vasoactive support. No sig volume overload. No delay in chest tube removal. Residual left pleural effusion responsive to aggressive diuresis. Skilled for SNF rehab by PT. 4. Acute expected blood loss anemia with thrombocytopenia - Stable. No transfusions needed. Platelet rebound noted. INR rapidly therapeutic. 5. Acute on chronic kidney disease stage 3 (baseline 1.3) - Bump in Cr to peak of 2 on POD#2. Prompt resolution with careful fluid management and permissive HTN. Subsequent active diuresis well tolerated. 6. Hypertension - Stable on home meds. Tight control deferred d/t recent SEAN.
--- NOTE | 2018-04-25 14:40 | ASMTDCNOTE ---
Case Management Discharge Discharge Order Complete? Answers: Yes Patient to Obtain Answers: Other Notes: [facility] Transportation Arranged Answers: Other Notes: Wendy w/c arranged alana Armstrong at [facility] Transport will Pick (Date 04/25/2018 02:00 PM & Time) Faxed Final Orders Answers: Yes Notes: to [facility] Agency/Facility Transfer Answers: Yes Notes: to [facility] Report Printed & Faxed to Receiving Agency Family Notified Answers: Yes Discharge Comments Notes: 04/25/2018 Case Management Note Faxed discharge orders to [facility]. [facility] arranged transport. RN called report. Wendy w/c transported pt. Case Management d/c poc: [facility] rehab. Date Signed: 04/25/2018 02:39 PM Electronically Signed By:Annabelle Marina RN
--- NOTE | 2018-04-25 14:40 | ASDISCHSUM ---
Discharge Information Plan Status:SNF Medically Cleared to Leave:04/24/2018 Discharge Date:04/25/2018 01:58 PM CM D/C Disposition:Fdc Facility ADT D/C Disposition:Fdc Facility Projected Discharge Date:04/25/2018 11:00 AM Transportation at D/C:Wheelchair Van Discharge Delay Reason: Follow-Up Date:04/25/2018 11:00 AM Discharge Slot: Final Diagnosis: Placement Information Referral Type:*Half-Way/SNF Referral ID:[id number] Provider Name:Cira Schrader Address 1:[address] Phone Number: Address 2: Fax Number: City:[place] Selection Factors: State:[place] Patient Contact Information Contact Name:SHAY Relationship: Address:[address] City:[facility] Phone: State/Zip Code:[place] [address] Email: Financial Information Financial Class:Medicare Advantage Plans Primary Plan Desc:CHERYL DICKSON PP MEDICARE Primary Plan Number:[id number] Secondary Plan Desc: Secondary Plan Number: Assessment Information LACE LACE Length of stay for Answers: 7-13 days current admission Acuity / Level of Answers: Yes Care: Did the patient have an inpatient admission? Comorbidities - select Answers: Congestive heart failure all that apply Mild liver or renal disease Other Notes: HTN; AFib; HLD # of Emergency department Answers: 1-2 visits in the last 6 months Score: 14 Date Signed: 04/25/2018 02:37 PM Electronically Signed By:Annabelle Marina RN [facility] Initial CM Assessment Living Arrangements What is your living Answers: With Spouse arrangement? Who do you live with? Type Of Residence What kind of residence do Answers: House you live in? Discharge Plan Comments Coordination Status Comments Notes: Patient is an 82yo female who lives in [place], [place] with her . Patient has paroxysmal atrial fibrillation, severe mitral regurgitation and severe tricuspid regurgitation. She is here for open heart surgery with Dr. Kolb. OT/PT/cardiac rehab evals ordered for the patient. Follow up may be in OR. D/C plan TBD. CM will follow. Date Signed: 04/18/2018 03:32 PM Electronically Signed By:Jessica Scott LCSW [facility] Progress Note CM Note CM Note Notes: PT is recommending SNF rehab for the patient. Spoke with the PT who confirmed patient was going to need SNF. Met with patient's family and discussed the steps towards placement. They have decided to review [facility], [facility], and [facility].Referrals have been sent to all 3 facilities. Patient's daughter, Cindi and friend, Ilsa will tour the programs tomorrow. CM will touch [facility] tomorrow to get their first choice. Patient's is flying home tomorrow. Patient is wanting to complete rehab here because she has plans to then go on to [place] which was her original plan before this medical event. CM will follow. Date Signed: 04/21/2018 04:49 PM Electronically Signed By:Jessica Scott LCSW [facility] Progress Note CM Note CM Note Notes: Patient's family has chosen [facility] as their first choice and [facility] as their second choice. [facility] has accepted patient. Discharge plan is [facility] when patient is medically clear. CM will follow. Date Signed: 04/22/2018 04:05 PM Electronically Signed By:Jessica Scott LCSW [facility] CM Progress Note CM Note CM Note Notes: 04/22/2018 Case Management Note Met w/pt and family. Family has chosen [facility] as first choice and [facility] as second. Notified [facility] to ask for auth. Case Management d/c poc: [facility] once approved by insurance. Case Management to follow. Date Signed: 04/22/2018 04:24 PM Electronically Signed By:nAnabelle Marina RN [facility] CM Progress Note CM Note CM Note Notes: CM notified per [facility] that authorization for patient has been obtained. Likely to be ready to transfer tomorrow. CM to follow. Plan: Dc to [facility] tomorrow. Date Signed: 04/24/2018 04:26 PM Electronically Signed By:Ema Clark RN Case Management Discharge Plan Note Case Management Discharge Discharge Order Complete? Answers: Yes Patient to Obtain Answers: Other Notes: [facility] Transportation Arranged Answers: Other Notes: Wendy morgan/monica arranged alana Armstrong at [facility] Transport will Pick (Date 04/25/2018 02:00 PM & Time) Faxed Final Orders Answers: Yes Notes: to [facility] Agency/Facility Transfer Answers: Yes Notes: to [facility] Report Printed & Faxed to Receiving Agency Family Notified Answers: Yes Discharge Comments Notes: 04/25/2018 Case Management Note Faxed discharge orders to [facility]. [facility]. RN called report. Wendy morgan/mon[facility] transported pt. Case Management d/c poc: [facility] SNF rehab. Date Signed: 04/25/2018 02:39 PM Electronically Signed By:Annabelle Marina RN Intervention Information Intervention Type:*IM-Signed Date of Service:04/25/2018 10:32 AM Patient Type:Inpatient Staff Member:Tracy Allison Hours: Discipline: Severity: Comment:
[2018-04-25] MEDS ORDERED: WARFARIN SODIUM 1 MG TAB PO SCH (16:00)
[2018-04-25] MEDS ORDERED: AMIODARONE HCL 200 MG TAB PO SCH (21:00)
[2018-04-25] MEDS ORDERED: PRESERVISION AREDS2 FORMULA EYE VIT 1 EACH PO SCH (21:00)
== END 2018-04-25 13:58 | DRG 220 ==
LOC: F2W 05:47 → F2N 08:17 → F2W 04-21 13:10
PROVIDERS: ADMIT Thoracic Surgery (Cardiothoracic Vascular Surgery); ATTEND Thoracic Surgery (Cardiothoracic Vascular Surgery)
DX: I34.0 Nonrheumatic mitral (valve) insufficiency (principal); I36.1 Nonrheumatic tricuspid (valve) insufficiency; I27.22 Pulmonary hypertension due to left heart disease; I50.32 Chronic diastolic (congestive) heart failure; I48.1 Persistent atrial fibrillation; Z79.01 Long term (current) use of anticoagulants; D62 Acute posthemorrhagic anemia; N17.9 Acute kidney failure, unspecified; N18.3 Chronic kidney disease, stage 3 (moderate); I25.10 Atherosclerotic heart disease of native coronary artery without angina pectoris; Z87.891 Personal history of nicotine dependence; I11.0 Hypertensive heart disease with heart failure
CPT/HCPCS: 82435-PO; 82565-PO; 82947-PO; 83605-ER; 84132-PO; 84295-PO; 84520-PO; 85014-ER; 92610-GN; 97110-GP; 97116-GP; 97162-GP; 97165-GO; 97530-GO; 97530-GP; 97535-GO; C1768; J0153; J0171; J0282; J0330; J0690; J1170; J1265; J1644; J1815; J1940; J2001; J2150; J2250; J2260; J2270; J2370; J2405; J2704; J2720; J2765; J2930; J3010; J3475; J3480; P9041

== ENCOUNTER → 2018-05-03 | Outpatient (CLI) | payer OTHER | LOC: FIMAGING 11:18 | PROVIDERS: ATTEND Thoracic Surgery (Cardiothoracic Vascular Surgery) | DX: J98.4 Other disorders of lung (principal); Z98.890 Other specified postprocedural states; Z95.2 Presence of prosthetic heart valve ==